=== PATIENT | male | born 1965 | race Caucasian/White ===

== ENCOUNTER → 2019-12-04 15:02 | Outpatient (BNVA) | payer OTHER, SELFPAY | PROVIDERS: PCP Internal Medicine; Visit Provider Surgery | DX: D17.1 Benign lipomatous neoplasm of skin and subcutaneous tissue of trunk (principal) | CPT/HCPCS: 99212 ==

== ENCOUNTER 2019-12-24 06:59 | Day surgery (SDC) | payer OTHER, SELFPAY ==
[2019-12-24] VITALS (8 sets, daily range): BP systolic 123–150; BP diastolic 61–85; PULSE 56–77; RESP 16; TEMP 36.1–37; O2SAT 95–97; BMI 31.5
[2019-12-24] MEDS: Lactated Ringers 1,000 ML 100 ML IVCONT (07:45)
--- NOTE | 2019-12-24 07:45 | P.CONAN_ITS ---
[facility] Past Medical History Medical History History of opioid abuse Hypogonadism Osteoarthritis Renal stones Family History Family history of problems with anesthesia: No Surgical History Surgical History H/O shoulder surgery History of Problems with Anesthesia: No Social History Social History Smoking Status: Never smoker Use of substances other than those prescribed or required for medical reasons: No Advance Directives: No Advance Directives Information Provided: Yes Meds Allergies Allergy/AdvReac Type Severity Reaction Status Date / Time codeine [CODEINE] Allergy Severe RASH Verified 12/24/19 07:11 Home Medications Medication Instructions Recorded Confirmed Type buprenorphine 12 mg-naloxone 3 mg 15 mg SUBLINGUAL DAILY 12/04/19 12/04/19 History sublingual film omeprazole 20 mg capsule,delayed mg PO 12/04/19 12/04/19 History release testosterone 20.25 mg/1.25 gram TRANSDERMAL 12/04/19 12/04/19 History (1.62 %) transdermal gel pump clonazepam 1 tab PO BID PRN 12/24/19 12/24/19 History Exam Exam Date and Time: December 24, 2019 0745 Height,Weight and Vital Signs: Height 5 ft 10 in Weight 99.79 kg Vital Signs Temp Pulse Resp BP Pulse Ox 12/24/19 08:02 98.6 F 56 16 142/85 H 95 Airway Mallampati Class: II TM Dist: >3cm Neck ROM: Full Heart: RRR Lungs: CTAB Assessment and Plan Assessment Anesthesia Assessment: Anesthesia Plan Discussed and Chart Reviewed Final Anesthetic Review NPO: Yes ASA Class: II Final Preanesthetic Review: No Changes in Pt Med Stat, Meds/Allgs Chart Reviewed, Consent Obtained/Reviewed and Anes Risks/Benef Reviewed Patient Risk: Intermediate Procedure Risk: Low Anesthetic Plan Anesthetic Plan: GA Disposition: Standard PACU
[2019-12-24] MEDS: ceFAZolin Sodium/Dextrose,Iso 2 GM/50 ML PIGGYBACK IV (08:05)
[2019-12-24] MEDS: ondansetron HCL 4 MG/2 ML VIAL IVPUSH (08:08)
--- NOTE | 2019-12-24 08:44 | MHC.SHP ---
Pre-Procedural Eval Section A The patient is an INPATIENT: No Changes since office visit: Yes Patient answered all questions; No Cold of Flu in the past 2 weeks, No New Medical Problems and No Changes in Medication The History & Physical has been completed within 30 days and I have reviewed it.: Yes Section B Chief Complaint: Lipoma of back Allergies: Allergies Allergy/AdvReac Type Severity Reaction Status Date / Time codeine [CODEINE] Allergy Severe RASH Verified 12/24/19 07:11 Plan Diagnosis/Plan: Unchanged Patient has been examined and remains a candidate for the planned procedure
--- NOTE | 2019-12-24 08:49 | PM.OP ---
Brief Operative Note Date of Service: 12/24/19 Pre-op diagnosis: Lipoma posterior left shoulder Post-op diagnosis: same Procedure: Excision lipoma posterior left shoulder Implants: none Surgeon: Griffin Radford MD Anesthesia: GLMA Estimated blood loss (mL): 5 Pathology: other (lipoma left shoulder) Condition: stable Disposition: PACU
--- NOTE | 2019-12-24 09:36 | P.OP_ITS ---
Operative Note Operative Note Date of Service: 12/24/19 Narrative: Preoperative diagnosis: Lipoma left back Postoperative diagnosis: Same Procedure: Excision of lipoma left back Surgeon: Griffin Radford MD Anesthesia: General LMA Indications for procedure: This is a 54-year-old male presenting with a soft tissue mass of the left upper back which is causing increased discomfort increasing in size. Patient has requested excision. Examination the patient has a 5 cm soft tissue mass suggestive of a lipoma. No overlying skin changes are identified. Operative findings patient was found have a 5 cm soft tissue mass suggestive of a lipoma. Specimen: Lipoma left back Complications: none Estimated blood loss: 5 mL Procedure details patient was brought to the OR placed in supine position. After administering general anesthesia he was placed in a right lateral decubit us position. A surgical time-out was called the consent confirmed. Patient received preoperative antibiotics and Venodyne boots were placed. The skin over the lipoma was prepped with ChloraPrep and draped in a sterile fashion. Local was infiltrated around the lipoma and the left back. Take oblique incision was then made over the lipoma and carried out through subcutaneous tissue up to the lipoma. Electrocautery was then used to dissect the lipoma off the surrounding tissue. The lipoma extended down to the muscular fascia. Hemostasis was assured using electrocautery. Lesion was excised and sent to pathology for further examination. Wounds were then irrigated with saline solution and suctioned dry. Wounds were again checked for hemostasis. Subcutaneous tissue was reapproximated using interrupted 3 0 Polysorb sutures. Skin was closed using a running subcuticular 4-0 Polysorb suture. Steri-Strips 4 x 4 gauze and Tegaderm were then applied. Patient tolerated procedure well. Sponge, instrument, needle counts reported as correct. The patient was transferred to PACU in stable condition.
--- NOTE | 2019-12-24 11:19 | HO.POSTANES ---
Post Anesthesia Evaluation Post Anesthesia Evaluation Vital Signs: Vital Signs Temp Pulse Resp BP Pulse Ox 12/24/19 10:44 76 16 96 12/24/19 10:15 97 F 74 16 135/67 97 12/24/19 10:00 67 16 134/75 95 12/24/19 09:45 71 16 134/75 95 12/24/19 09:40 74 16 150/64 H 96 12/24/19 09:35 77 16 146/61 H 97 12/24/19 09:30 98.2 F 75 16 123/67 97 12/24/19 08:02 98.6 F 56 16 142/85 H 95 Anesthesia: General Mental Status: Awake Pain Control: Satisfactory Nausea/Vomiting: None Hydration: Adequate Anesthesia-Related Issues: No Anes. Related Issues
== END 2019-12-24 11:15 | disposition home or self-care (01) ==
LOC: HO.SSS 07:00
PROVIDERS: PCP Internal Medicine; Visit Provider Surgery
PROC: (CPT 21933; principal; 2019-12-24 08:30)
DX: D17.79 Benign lipomatous neoplasm of other sites (principal); Z88.8 Allergy status to other drugs, medicaments and biological substances; Z79.899 Other long term (current) drug therapy
CPT/HCPCS: 21933; 88304; J0131; J0690; J1100; J1885; J2250; J2405; J3010

== ENCOUNTER 2019-12-24 11:23 | Outpatient (REF) | payer OTHER, SELFPAY ==
[2019-12-24 14:41] LABS: Alanine Aminotransferase 20 U/L (0-40); Aspartate Amino Transferase 17 U/L (5-37); Gamma Glutamyl Transpeptidase 69 U/L (11-51)
[2019-12-25 08:52] LABS: Lyme Abs Screen <0.90 index
== END 2019-12-24 11:24 | disposition home or self-care (01) ==
LOC: HO.10HDL 11:23
PROVIDERS: Absent Provider Internal Medicine; PCP Internal Medicine; Visit Provider Nurse Practitioner
DX: T14.8XXA Other injury of unspecified body region, initial encounter (principal); F11.20 Opioid dependence, uncomplicated
CPT/HCPCS: 82977; 84450; 84460; 86618

== ENCOUNTER 2019-12-27 07:42 | Emergency (ER) | payer OTHER, SELFPAY ==
--- NOTE | 2019-12-27 | XR_ITS ---
EXAMINATION: XR ANKLE, RIGHT CLINICAL INFORMATION: Right ankle pain. Rolled ankle. COMPARISON: None TECHNIQUE: AP, lateral, and mortise views of the right ankle. FINDINGS: There is no fracture or dislocation. The ankle mortise is congruent. Mild osteophyte formation along the mortise consistent with degenerative change. There is mild circumferential soft tissue swelling with small joint effusion. Plantar heel spur noted. XR/XR ankle RT min 3V IMPRESSION: Soft tissue swelling with small ankle joint effusion. No acute fracture or malalignment. Degenerative changes of the ankle. Plantar heel spur.
[2019-12-27 09:07] VITALS: BP 108/65; PULSE 81; RESP 16; TEMP 37.1; O2SAT 96; BMI 69.5
--- NOTE | 2019-12-27 09:11 | XR_ITS ---
EXAMINATION: XR FOOT, RIGHT CLINICAL INFORMATION: Twisting injury with right foot and ankle pain. COMPARISON: Right ankle radiographs performed earlier today at 8:05 AM. TECHNIQUE: AP, lateral, and oblique views of the right foot. FINDINGS: No fractures identified. There is no dislocation. Small inferior calcaneal spur noted. No suspicious osseous lesions. Mild soft tissue swelling about the ankle is redemonstrated. XR/XR foot RT min 3V IMPRESSION: No evidence of acute fracture or dislocation.
--- NOTE | 2019-12-27 09:20 | ED_ITS ---
HPI - Extremity Injury (Lower) General Chief Complaint: Extremity Injury, Lower Stated Complaint: RT ANKLE INJ Time Seen by Provider: 12/27/19 09:11 Source: patient Mode of arrival: wheelchair Limitations: no limitations History of Present Illness HPI Narrative: 54-year-old male presenting to the ED with complaints of right ankle /foot pain after twist injury while jogging. Denies head injury or loss of consciousness. Denies any other injuries complaints or concerns at this time. Patient reports it is worse with walking. Relieved by nothing. Related Data Home Medications Medication Instructions Recorded Confirmed buprenorphine 12 mg-naloxone 3 mg 15 mg SUBLINGUAL DAILY 12/04/19 12/04/19 sublingual film omeprazole 20 mg capsule,delayed mg PO 12/04/19 12/04/19 release testosterone 20.25 mg/1.25 gram TRANSDERMAL 12/04/19 12/04/19 (1.62 %) transdermal gel pump clonazepam 1 tab PO BID PRN 12/24/19 12/24/19 Previous Rx's Medication Instructions Recorded testosterone 20.25 mg/1.25 gram 2 pump TOPICAL DAILY 28 Days #75 g 12/06/19 (1.62 %) transdermal gel pump ibuprofen 800 mg PO Q8H PRN #14 tab 12/27/19 tramadol 50 mg PO Q8H PRN #14 tab 12/27/19 Allergies Allergy/AdvReac Type Severity Reaction Status Date / Time codeine [CODEINE] Allergy Severe RASH Verified 12/24/19 07:11 Review of Systems Review of Systems: Constitutional : No changes in activity, No lethargy, No recent prior head injury, No blood thinners. ENT/Mouth : No Ear Pain, No Nasal discharge/drainage Eyes: No Eye Pain, No Swelling, No Redness, No Foreign Body, No Vision Changes Cardiovascular : No Chest Pain, No SOB Respiratory : No Cough Gastrointestinal : No Nausea, No Vomiting, No abdominal Pain Genitourinary : No Dysuria, No Urinary Frequency, No Urinary Incontinence, No Urgency, No Flank Pain Musculoskeletal : + joint pain, No neck stiffness, No back pain/injury Skin : No lacerations Neuro : No unsteady gait, No Paresthesias, No Loss of Consciousness, No altered mental status, No Headache Yes all other systems are reviewed and are negative PMFSH Past Medical History Attestation statement: The following information was validated with the patient. Medical History History of opioid abuse Hypogonadism Osteoarthritis Renal stones Surgical History H/O shoulder surgery Social History Social History Smoking Status: Never smoker Advance Directives: Yes Advance Directives on File: Yes Advance Directives Date on File: 12/24/19 Physical Exam Vital Signs: Vital Signs: Last Vital Signs Temp 98.7 F 12/27/19 09:07 Pulse 81 12/27/19 09:07 Resp 16 12/27/19 09:07 BP 108/65 12/27/19 09:07 Pulse Ox 96 12/27/19 09:07 Body Mass Index 69.5 vital signs have been reviewed as normal and appeared to be correct. Blood pressure normal. Heart rate normal. Respiration rate normal. Temperature normal. Oxygen saturation normal. Appearance: Alert. Oriented X3. No acute distress. Head: Normal external exam. Normocephalic. Atraumatic. No Contreras signs noted. No raccoon eyes noted Eyes: PERRLA. EOMI. Conjunctiva and sclera normal. Eyelids normal. ENT: Pharynx normal. Uvula midline. Moist mucous membranes. Neck: Normal inspection. Neck supple. FROM. No adenopathy. Thyroid Normal. No meningeal signs. No neck mass noted. CVS: Normal heart rate and rhythm. Heart sound normal. No murmurs noted. Pulses normal throughout. Respiratory: No respiratory distress. Painless inspiration. Back: Full range of motion noted. Skin: Skin warm and dry. Normal skin color. Normal skin turgor. No rashes/lesions/lacerations noted. Extremities: to right ankle Lateral malleolus there is moderate soft tissue swelling with contusion noted and tenderness to palpation. No obvious deformities. Patient has limited range of motion for inversion and eversion due to pain. Patient has full strength for plantar flexion dorsiflexion. Achilles tendon intact. No lower extremity edema. all other Extremities exhibit normal range of motion and nontender. Neuro: Oriented X 3. No motor deficit. No sensory deficit. Reflexes normal. Course Course Course Narrative: Patient status post twist injury with pain to right ankle at the lateral malleolus with soft tissue swelling along with the foot and contusion noted. Patient has limited range of motion due to pain. Will obtain x-rays if negative will place in Raul wrap and provide crutches along with symptomatic treatment instructions to follow up with Orthopedics within 7-14 days. Patient understands agrees with this plan. MDM - Extremity Injury (Lower) Medical Records Attestation: I reviewed the patient's medical records. Imaging Data right ankle: Attestation: I personally reviewed and interpreted this imaging study as follows: Radiologist's impression: FINDINGS: There is no fracture or dislocation. The ankle mortise is congruent. Mild osteophyte formation along the mortise consistent with degenerative change. There is mild circumferential soft tissue swelling with small joint effusion. Plantar heel spur noted. XR/XR ankle RT min 3V IMPRESSION: Soft tissue swelling with small ankle joint effusion. No acute fracture or malalignment. Degenerative changes of the ankle. Plantar heel spur. right foot: Attestation: I personally reviewed and interpreted this imaging study as follows: Discharge Plan Discharge Clinical Impression: Ankle sprain and strain Patient Disposition: Home, Self-Care Instructions: Ankle Sprain (ED), Crutch Instructions (ED) Prescriptions: New ibuprofen 800 mg tablet 800 mg PO Q8H PRN (Reason: pain) Qty: 14 RF: 0 tramadol 50 mg tablet 50 mg PO Q8H PRN (Reason: pain) Qty: 14 RF: 0 No Action testosterone [AndroGel] 20.25 mg/1.25 gram (1.62 %) gel in metered-dose pump 2 pump topical DAILY 28 Days Qty: 75 RF: 5 clonazepam 1 mg tablet 1 tab PO BID PRN (Reason: Anxiety) RF: 0 omeprazole 20 mg capsule,delayed release(DR/EC) PO RF: 0 testosterone 20.25 mg/1.25 gram (1.62 %) gel in metered-dose pump transdermal RF: 0 buprenorphine-naloxone 12-3 mg film 15 mg sublingual DAILY RF: 0 Referrals: Eligio Calhoun MD [Physician] - 2 weeks Stand Alone Forms: Work/School Release Print Language: Colombian
[2019-12-27] MEDS: traMADoL HCL 50 MG TABLET PO (09:33)
[2019-12-27] MEDS: NaPROXEN 500 MG TABLET PO (09:33)
== END 2019-12-27 10:15 | disposition home or self-care (01) ==
PROVIDERS: Emergency Provider Emergency Medicine; PCP Internal Medicine
DX: S93.401A Sprain of unspecified ligament of right ankle, initial encounter (principal); M25.571 Pain in right ankle and joints of right foot; X50.1XXA Overexertion from prolonged static or awkward postures, initial encounter; Y93.02 Activity, running; Y92.410 Unspecified street and highway as the place of occurrence of the external cause; Y99.9 Unspecified external cause status
CPT/HCPCS: 73610; 73630; 99283

== ENCOUNTER → 2020-01-02 10:20 | Outpatient (BNVA) | payer OTHER, SELFPAY | PROVIDERS: PCP Internal Medicine; Visit Provider Surgery | DX: D17.1 Benign lipomatous neoplasm of skin and subcutaneous tissue of trunk (principal) | CPT/HCPCS: 99212 ==

== ENCOUNTER → 2020-01-11 10:25 | Outpatient (BNVA) | payer OTHER, SELFPAY | PROVIDERS: Visit Provider Physician Assistant | DX: S93.401A Sprain of unspecified ligament of right ankle, initial encounter (principal) | CPT/HCPCS: 99202 ==

== ENCOUNTER 2020-02-18 11:28 | Outpatient (REF) | payer OTHER, SELFPAY ==
[2020-02-18 13:52] LABS: MANUAL DIFF FLAG NO
[2020-02-18 13:55] LABS: Basophils Percent Auto 0.4 % (0-2); Eosinophils Absolute Auto 0.2 X10*3/uL (0.0-0.4); Eosinophils Percent Auto 1.4 % (0-4); Hematocrit 42.5 % (42-52); Hemoglobin 13.7 g/dl (14.0-18.0); Imm Gran Abs Auto 0.03 X10*3/uL (0.00-0.03); Imm Gran Pct Auto 0.3 % (0.0-0.4); Lymphocytes Absolute Auto 1.5 X10*3/uL (1.2-4.9); Lymphocytes Percent Auto 14.2 % (20-40); Mean Corpuscular HGB Conc 32.2 g/dl (31.0-36.0); Mean Corpuscular Hemoglobin 28.1 pg (27.0-33.0); Mean Corpuscular Volume 87.3 fL (80-98); Mean Platelet Volume 9.8 fL (9.4-12.4); Monocytes Absolute Auto 0.8 X10*3/uL (0.1-1.2); Monocytes Percent Auto 7.1 % (2-11); Neutrophils Absolute Auto 8.1 X10*3/uL (2.0-8.3); Neutrophils Percent Auto 76.6 % (45-73); Platelet Count 208 X10*3/uL (160-400); Red Blood Count 4.87 X10*6/uL (4.60-5.80); Red Cell Distribution Width 13.3 % (11.0-16.0); White Blood Count 10.6 X10*3/uL (4.8-10.8)
[2020-02-18 14:26] LABS: Alanine Aminotransferase 21 U/L (0-40); Albumin Level 4.1 g/dL (3.5-5.0); Alkaline Phosphatase 70 U/L (39-117); Anion Gap 11 (12-20); Aspartate Amino Transferase 20 U/L (5-37); Bilirubin Total 0.4 mg/dL (0.0-1.0); Blood Urea Nitrogen 16 mg/dL (9-16); Calcium 8.5 mg/dL (8.4-10.2); Carbon Dioxide 29 mmol/L (22-29); Chloride 103 mmol/L (96-108); Cholesterol 207 mg/dL; Estimated Glomerular Filt Rate > 60; Glucose Fasting 93 mg/dL (60-99); HDL Cholesterol 41 mg/dL; LDL Cholesterol Calculated 133 mg/dl; Potassium 4.3 mmol/l (3.3-5.1); Sodium 139 mmol/L (135-145); Total Protein 6.8 g/dL (6.5-8.0); Triglycerides 165 mg/dL
[2020-02-18 14:50] LABS: Free T4 (Free Thyroxine) 0.82 ng/dL (0.71-1.85); Thyroid Stimulating Hormone 1.97 uIU/mL (0.32-4.0)
[2020-02-18 15:00] LABS: Vitamin B12 497 pg/mL (200-900)
== END 2020-02-18 11:29 | disposition home or self-care (01) ==
LOC: HO.10HDL 11:28
PROVIDERS: PCP Internal Medicine; Visit Provider Internal Medicine
DX: R53.83 Other fatigue (principal); N20.0 Calculus of kidney; K21.9 Gastro-esophageal reflux disease without esophagitis; E78.00 Pure hypercholesterolemia, unspecified
CPT/HCPCS: 36415; 80053; 80061; 82607; 84439; 84443; 85025

== ENCOUNTER 2020-05-29 14:43 | Outpatient (REF) | payer OTHER, SELFPAY ==
[2020-05-29 15:59] LABS: Amphetamine Screen Urine Not Detected (Not Detect); Barbiturates, Urine Not Detected (Not Detect); Benzodiazepines Screen Urine POSITIVE (Not Detect); Cannabinoid Screen Urine Not Detected (Not Detect); Cocaine Screen Urine Not Detected (Not Detect); Opiate Screen Urine Not Detected (Not Detect); Phencyclidine Screen Urine Not Detected (Not Detect)
== END 2020-05-29 14:44 | disposition home or self-care (01) ==
LOC: HO.LAB 14:43
PROVIDERS: PCP Internal Medicine; Visit Provider Internal Medicine
DX: F11.99 Opioid use, unspecified with unspecified opioid-induced disorder (principal)
CPT/HCPCS: 80307

== ENCOUNTER 2020-09-05 08:20 | Outpatient (REF) | payer OTHER, SELFPAY | END 2020-09-05 08:21 | disposition home or self-care (01) | LOC: HO.LAB 08:20 | PROVIDERS: PCP Internal Medicine; Visit Provider Internal Medicine | DX: Z20.822 Contact with and (suspected) exposure to COVID-19 (principal) | CPT/HCPCS: C9803; U0003; U0005 ==

== ENCOUNTER 2020-11-24 08:46 | Emergency (ER) | payer OTHER, SELFPAY ==
[2020-11-24 09:11] VITALS: BP 110/77; PULSE 90; RESP 16; TEMP 36.8; O2SAT 96; BMI 30.1
[2020-11-24] MEDS: Lidocaine HCl 2 % MPF 5 ML VIAL SUBCUT (10:21)
--- NOTE | 2020-11-24 10:27 | ED.WOUNDLAC ---
HPI - Wound/Laceration General Chief Complaint: Wound/Laceration Stated Complaint: lip laceration Time Seen by Provider: 11/24/20 10:16 Source: patient Mode of arrival: ambulatory Limitations: no limitations History of Present Illness HPI narrative: 55-year-old male here with upper lip laceration after wrestling last evening. Patient tells me he was wrestling with a friend when he fell forward hitting his face on a cabinet in the kitchen. This happened at around 02:00. Last tetanus 1 year ago. No head injury or loss of consciousness. Related Data Home Medications Medication Instructions Recorded Confirmed buprenorphine 12 mg-naloxone 3 mg 15 mg SUBLINGUAL DAILY 12/04/19 01/02/20 sublingual film omeprazole 20 mg capsule,delayed mg PO 12/04/19 01/02/20 release testosterone 20.25 mg/1.25 gram TRANSDERMAL 12/04/19 01/02/20 (1.62 %) transdermal gel pump clonazepam 1 mg tablet 1 tab PO BID PRN 12/24/19 01/02/20 Previous Rx's Medication Instructions Recorded testosterone 20.25 mg/1.25 gram 2 pump TOPICAL DAILY 28 Days #75 g 12/06/19 (1.62 %) transdermal gel pump (AndroGel) ibuprofen 800 mg tablet 800 mg PO Q8H PRN #14 tab 12/27/19 tramadol 50 mg tablet 50 mg PO Q8H PRN #14 tab 12/27/19 leg brace (Ankle Brace) #1 ea 01/16/20 leg brace (Ankle Brace) #1 ea 01/16/20 Allergies Allergy/AdvReac Type Severity Reaction Status Date / Time codeine [CODEINE] Allergy Severe RASH Verified 01/11/20 10:33 Review of Systems Review of Systems: Yes all other systems are reviewed and are negative Constitutional: Constitutional: Reports no additional constitutional complaints, Denies body ache(s), Denies chills, Denies fever(s), Denies headache(s) and Denies weakness Eyes: Eyes: Reports no additional eye complaints and Denies change in vision ENT: Reports system reviewed and no additional complaints, except as documented, Denies dizziness, Denies headache(s), Reports lip swelling, Denies nasal congestion, Denies nasal discharge and Denies neck pain Comments: lip laceration Cardiovascular: Cardiovascular: Reports no additional cardiovascular complaints, Denies chest pain, Denies leg edema and Denies dyspnea Respiratory: Respiratory: Reports no additional respiratory complaints, Denies cough and Denies dyspnea Gastrointestinal: Gastrointestinal: Reports no additional gastrointestinal complaints, Denies abdominal pain, Denies diarrhea, Denies nausea and Denies vomiting Genitourinary: Genitourinary: Denies urinary incontinence Musculoskeletal: Musculoskeletal: Reports no additional musculoskeletal complaints, Denies back pain, Denies arthralgias, Denies joint swelling, Denies neck pain, Denies numbness and Denies tingling Integumentary/Breasts: Skin/Breast: Reports system reviewed and no additional complaints, except as docu and Denies rash Neurologic: Reports system reviewed and no additional complaints, except as documented, Denies Abnormal speech present, Denies dizziness, Denies headache(s), Denies numbness, Denies tingling and Denies weakness Allergic/Immunologic: Allergic/Immunologic: Reports lip swelling PMFSH Past Medical History Attestation statement: The following information was validated with the patient. Source: old records reviewed and nursing notes reviewed Medical History History of opioid abuse Hypogonadism Osteoarthritis Renal stones Surgical History H/O shoulder surgery History of excision of mass (~12/24/19) Social History Social History Advance Directives Date on File: 12/24/19 Physical Exam Vital Signs: Vital Signs: Last Vital Signs Temp 98.2 F 11/24/20 09:11 Pulse 90 11/24/20 09:11 Resp 16 11/24/20 09:11 BP 110/77 11/24/20 09:11 Pulse Ox 96 11/24/20 09:11 Body Mass Index 30.1 Const: General: cooperative, healthy appearing, comfortable and no acute distress Orientation/consciousness: patient oriented x3 Limitations: no limitations HENMT: Head: Yes normal to inspection Ears: hearing grossly normal bilaterally General nose exam: Normal external nose present Face and sinus: Yes normal facial exam Mouth: Normal oral and palatal mucosa present Mouth/tongue images: 1. Two centimetre laceration through the vermilion border. Just inferior to this there is an abrasion with edges that are approximated 2. Abrasion bleeding controlled Throat: Yes posterior oropharynx normal Eyes: General: appearance normal, both eyes and all related structures Pupils: Equal, round and reactive pupils present Neck: Neck: Yes normal visual inspection Chest: Chest palpation & inspection: normal inspection of the chest Resp: Effort & Inspection: normal respiratory effort Auscultation: clear to auscultation bilaterally Cardio: Rate: regular rate Rhythm: regular rhythm Peripheral pulses: Peripheral pulses 2+ throughout GI: Inspection: Yes normal to inspection Palpation (GI): Soft to palpation and nontender Auscultation: normal bowel sounds Back/Spine/Pelvis: Thoracic/Lumbar Spine: thoracic and lumbar spine normal to inspection Skin: General skin exam: no rashes or lesions noted Neuro: General: patient oriented x3, no focal motor deficits and normal sensation to monofilament Cranial nerves: Yes Equal, round and reactive pupils present Cognition (Neuro): normal cognition Speech: No Abnormal speech present Gait exam (Neuro): Normal gait present Motor exam (neuro): 5/5 motor strength present throughout Extrem: General: Yes normal to inspection Course Course Course Narrative: Lip laceration. See procedure note. Patient had some anxiety about procedure but we were able to discuss this at the bedside and with family support the procedure was successful. Reviewed worrisome signs and symptoms and when to return to the emergency department. Comfortable discharge home. MDM - Wound/Laceration Differential Diagnosis Differential diagnosis: Likely laceration Medical Records Attestation: I reviewed the patient's medical records. Lab Data Attestation: I reviewed the patient's lab results. Procedures Laceration Laceration 1: Site: lip Side (If applicable): left Size (cm): 2 Description: linear Depth: simple, single layer Local Anesthetic: lidocaine 2% Amount of anesthesia used (mL): 3 Pre-repair: wound explored and irrigated extensively Skin layer closed with: other (Prolene) Size (cm): 6-0 Number of sutures: 3 Technique: simple, interrupted Discharge Plan Discharge Clinical Impression: Laceration Patient Disposition: Home, Self-Care Instructions: Facial Laceration (ED) Additional Instructions: sutures out in 5-7 days NO straws, sips of liquids. Soft foods only Hydrogen peroxide gargles Prescriptions: No Action testosterone [AndroGel] 20.25 mg/1.25 gram (1.62 %) gel in metered-dose pump 2 pump topical DAILY 28 Days Qty: 75 RF: 5 (DME) Ankle Brace Misc See Rx Instructions .MEDSUPPLY Qty: 1 RF: 0 (DME) Ankle Brace Misc See Rx Instructions .MEDSUPPLY Qty: 1 RF: 0 clonazepam 1 mg tablet 1 tab PO BID PRN (Reason: Anxiety) RF: 0 ibuprofen 800 mg tablet 800 mg PO Q8H PRN (Reason: pain) Qty: 14 RF: 0 tramadol 50 mg tablet 50 mg PO Q8H PRN (Reason: pain) Qty: 14 RF: 0 omeprazole 20 mg capsule,delayed release(DR/EC) PO RF: 0 testosterone 20.25 mg/1.25 gram (1.62 %) gel in metered-dose pump transdermal RF: 0 buprenorphine-naloxone 12-3 mg film 15 mg sublingual DAILY RF: 0 Referrals: Cj Moore MD [Primary Care Provider] - 2 days Interventions: ED Discharge Assessment Last Done: 11/24/20 10:31
== END 2020-11-24 10:40 | disposition home or self-care (01) ==
LOC: HO.ED 10:35
PROVIDERS: Emergency Provider Student in an Organized Health Care Education/Training Program; PCP Internal Medicine
DX: S01.511A Laceration without foreign body of lip, initial encounter (principal); Y33.XXXA Other specified events, undetermined intent, initial encounter; Y93.9 Activity, unspecified; Y92.9 Unspecified place or not applicable; Y99.9 Unspecified external cause status; Z79.899 Other long term (current) drug therapy
CPT/HCPCS: 12011; 99283; 99284

== ENCOUNTER 2021-02-24 12:09 | Outpatient (REF) | payer OTHER, SELFPAY ==
[2021-03-01 09:56] LABS: Testosterone, Free 29.2 pg/mL (35.0-155.0); Testosterone, Total 177 ng/dL (250-1100)
== END 2021-02-24 12:10 | disposition home or self-care (01) ==
LOC: HO.LAB 12:09
PROVIDERS: PCP Internal Medicine; Visit Provider Urology
DX: E29.1 Testicular hypofunction (principal)
CPT/HCPCS: 36415; 84402; 84403

== ENCOUNTER 2021-02-26 12:32 | Outpatient (REF) | payer OTHER, SELFPAY ==
[2021-02-26 13:46] LABS: Alanine Aminotransferase 35 U/L (0-40); Aspartate Amino Transferase 30 U/L (5-37); Gamma Glutamyl Transpeptidase 97 U/L (11-51)
== END 2021-02-26 12:33 | disposition home or self-care (01) ==
LOC: HO.LAB 12:32
PROVIDERS: PCP Internal Medicine; Visit Provider Registered Nurse
DX: F11.20 Opioid dependence, uncomplicated (principal)
CPT/HCPCS: 36415; 82977; 84450; 84460

== ENCOUNTER 2021-04-11 18:50 | Emergency (ER) | payer OTHER, SELFPAY ==
--- NOTE | 2021-04-11 18:59 | ECG_ITS ---
Test Reason : OVERDOSE Blood Pressure : / mmHG Vent. Rate : 148 BPM Atrial Rate : 000 BPM P-R Int : 000 ms QRS Dur : 090 ms QT Int : 312 ms P-R-T Axes : 000 -21 023 degrees QTc Int : 489 ms Atrial fibrillation with rapid ventricular response Nonspecific ST abnormality Abnormal ECG No previous ECGs available Referred By: Elver August Electronically Signed By:Jaime Kaur
[2021-04-11 19:00] VITALS: BP 173/119; PULSE 140; RESP 10; TEMP 36.5; O2SAT 100; BMI 31.5
[2021-04-11] MEDS: 0.9 % Sodium Chloride 1,000 ML 999 ML IV (19:08)
[2021-04-11 19:10] LABS: MANUAL DIFF FLAG NO
[2021-04-11 19:15] VITALS: BP 144/90; PULSE 156
[2021-04-11 19:16] LABS: Basophils Absolute Auto 0.1 X10*3/uL (0.0-0.2); Basophils Percent Auto 0.7 % (0-2); Eosinophils Absolute Auto 0.1 X10*3/uL (0.0-0.4); Eosinophils Percent Auto 1.3 % (0-4); Hematocrit 45.7 % (42.0-52.0); Hemoglobin 14.8 g/dl (14.0-18.0); Imm Gran Abs Auto 0.02 X10*3/uL (0.00-0.03); Imm Gran Pct Auto 0.2 % (0.0-0.4); Lymphocytes Absolute Auto 2.3 X10*3/uL (1.2-4.9); Lymphocytes Percent Auto 24.6 % (20-40); Mean Corpuscular HGB Conc 32.4 g/dl (31.0-36.0); Mean Corpuscular Hemoglobin 27.7 pg (27.0-33.0); Mean Corpuscular Volume 85.4 fL (80.0-98.0); Mean Platelet Volume 9.1 fL (9.4-12.4); Monocytes Absolute Auto 0.9 X10*3/uL (0.1-1.2); Monocytes Percent Auto 10.2 % (2-11); Neutrophils Absolute Auto 5.8 x10*3/uL (2.0-8.3); Platelet Count 339 X10*3/uL (160-400); Red Blood Count 5.35 X10*6/uL (4.60-5.80); Red Cell Distribution Width 13.6 % (11.0-16.0); White Blood Count 9.2 X10*3/uL (4.8-10.8)
[2021-04-11 19:24] LABS: Ethanol < 10 mg/dL
[2021-04-11 19:29] LABS: Alanine Aminotransferase 41 U/L (0-40); Albumin Level 4.8 g/dL (3.5-5.0); Alkaline Phosphatase 80 U/L (39-117); Anion Gap 14 (12-20); Aspartate Amino Transferase 41 U/L (5-37); Bilirubin Total 0.5 mg/dL (0.0-1.0); Blood Urea Nitrogen 21 mg/dL (9-16); Calcium 9.8 mg/dL (8.4-10.2); Carbon Dioxide 24 mmol/L (22-29); Chloride 104 mmol/L (96-108); Creatinine Clr Calc Pharmacy 92.5; Estimated Glomerular Filt Rate > 60; Glucose Random 176 mg/dL (60-115); Lipase 6 U/L (8-78); Potassium 4.3 mmol/L (3.3-5.1); Sodium 138 mmol/L (135-145); Total Protein 8.4 g/dL (6.5-8.0)
[2021-04-11 19:39] LABS: Lactic Acid 1.8 mmol/L (0.5-2.0)
[2021-04-11 19:45] VITALS: BP 98/70; PULSE 155
--- NOTE | 2021-04-11 19:51 | PC.NURSE ---
Pt resting on stretcher, alert and oriented HR 140s-160s BP 98/70 MD aware Plan: observation for change in mentation x 2-4 hours
--- NOTE | 2021-04-11 20:16 | HO.SUDE ---
Pt presented after an opioid overdose and was narcaned several times. Pt was not interested in engaging and reports that he doesn't want any resources at this time.
--- NOTE | 2021-04-11 20:19 | MHC.RECOVSUP ---
? Reason for consult:Recovery Support o ? ? ?Current location: ED-22 o ? ? ?Identified substance use concern: Heroine - Overdose - Support ? ?Intervention: o Community resources provided o Harm reduction discussion ? Additional information:?I was able to connect with patient and review harm reduction strategies and options for community outreach. Patient was in discomfort and wanted to rest. Community resources was left with the patient.
[2021-04-11 20:53] VITALS: PULSE 141; O2SAT 95
[2021-04-11 21:10] LABS: Amphetamine Screen Urine Not Detected (Not Detect); Barbiturates, Urine Not Detected (Not Detect); Benzodiazepines Screen Urine Not Detected (Not Detect); Cannabinoid Screen Urine Not Detected (Not Detect); Cocaine Screen Urine POSITIVE (Not Detect); Fentanyl, urine POSITIVE (Not Detect); Opiate Screen Urine POSITIVE (Not Detect); Phencyclidine Screen Urine Not Detected (Not Detect)
--- NOTE | 2021-04-11 21:54 | ED.OVERDOSE ---
HPI - Overdose General Chief Complaint: Overdose Stated Complaint: OD Time Seen by Provider: 04/11/21 18:58 Source: patient Mode of arrival: ambulatory Limitations: altered mental status History of Present Illness HPI Narrative: 56-year-old male who is brought to emergency department by his son for possible overdose. The patient was initially not able to give a history but after he was revived with Narcan was able to answer questions. He states that he does have a history opiate use disorder. He is currently taking Suboxone once a day. States that he used 2 bags of powder intranasally which he thought was heroin. He does not remember what happened after that. Apparently was unresponsive in his son drove him to the emergency department. The patient was taken out of his car placed on a stretcher and wheeled into the emergency department. The patient had minimal respiratory effort and in ED nurse was assisting his respirations with a bag-valve mask. He was given 4 doses of intranasal Narcan and did wake up. Initially he was confused and combative after being revived. He states that he was not ill in any way prior to using the intranasal drugs. He has no complaints at this time. He denies headache, nausea, vomiting, chest pain, shortness of breath, palpitations, abdominal pain, numbness, weakness. Related Data Home Medications Medication Instructions Recorded Confirmed buprenorphine 12 mg-naloxone 3 mg 15 mg SUBLINGUAL DAILY 12/04/19 01/02/20 sublingual film omeprazole 20 mg capsule,delayed mg PO 12/04/19 01/02/20 release clonazepam 1 mg tablet 1 tab PO BID PRN 12/24/19 01/02/20 Previous Rx's Medication Instructions Recorded testosterone 20.25 mg/1.25 gram 2 pump TOPICAL DAILY 28 Days #75 g 12/06/19 (1.62 %) transdermal gel pump (AndroGel) ibuprofen 800 mg tablet 800 mg PO Q8H PRN #14 tab 12/27/19 tramadol 50 mg tablet 50 mg PO Q8H PRN #14 tab 12/27/19 leg brace (Ankle Brace) #1 ea 01/16/20 leg brace (Ankle Brace) #1 ea 01/16/20 Allergies Allergy/AdvReac Type Severity Reaction Status Date / Time codeine [CODEINE] Allergy Severe RASH Verified 01/11/20 10:33 Review of Systems Review of Systems: Yes all other systems are reviewed and are negative [facility] Past Medical History [facility] Narrative: Past medical history: GERD, anxiety, opiate use disorder. Social history: Patient denies tobacco use. He denies alcohol use. He states that has a history opiate use disorder. He is taking Suboxone Medical History History of opioid abuse Hypogonadism Hypogonadism in male Osteoarthritis Renal stones Surgical History H/O shoulder surgery History of excision of mass (~12/24/19) Social History Social History Advance Directives: No Advance Directives Date on File: 12/24/19 Physical Exam Vital Signs: Vital Signs: Last Vital Signs Temp 97.7 F 04/11/21 19:00 Pulse 141 H 04/11/21 20:53 Resp 10 L 04/11/21 19:00 BP 98/70 04/11/21 19:45 Pulse Ox 95 04/11/21 20:53 BMI result Body Mass Index 31.5 Const: Other: Patient is unresponsive, diaphoretic, apneic, breathing use pain assisted by [id number] by the ED nurse. HENMT: Head: Yes normal to inspection, Yes normocephalic and Yes atraumatic Ears: external ears normal General nose exam: Normal external nose present Face and sinus: Yes normal facial exam Mouth: Normal oral and palatal mucosa present Throat: Yes posterior oropharynx normal Eyes: General: appearance normal, both eyes and all related structures Pupils: Pinpoint pupils Neck: Neck: Yes normal visual inspection, Yes no lymphadenopathy, Yes trachea midline and Yes supple Chest: Chest palpation & inspection: normal inspection of the chest and normal palpation of entire chest wall Resp: Other: Minimal respiratory effort, being assisted with bag-valve mask, breath sounds are symmetric bilaterally with no wheezing, rales or rhonchi Cardio: Rate: tachycardic Rhythm: regular rhythm Heart sounds: S1 normal heart sound present, S2 normal heart sound present and no murmurs GI: Inspection: Yes normal to inspection Palpation (GI): Soft to palpation, nontender and no guarding Auscultation: normal bowel sounds : General: Yes no CVA tenderness Back/Spine/Pelvis: Back: no CVA tenderness Skin: General skin exam: no rashes or lesions noted Neuro: Other: Patient is unresponsive, not responding to painful stimuli Extrem: General: Yes normal to inspection Psych: Other: Patient is unresponsive. Course Course Course Narrative: 56-year-old male with history of opiate use disorder on Suboxone who presents emergency department for evaluation of unresponsiveness after using 2 bags of intranasal drugs which he thought was heroin. Patient was transported to the emergency department by his son in extricated from his car brought into emergency department immediately. The patient was not breathing and his respirations were assisted with a bag-valve mask. He was given 4 doses of intranasal Narcan and did eventually respond. The patient was monitored in the emergency department for least 4 hours and during this time remained awake and alert. He was tachycardic and he was treated with normal saline x1 L. The patient's laboratory evaluation was unremarkable. Urine tox screen was positive for opiates, fentanyl and cocaine. I did discuss this with the patient. The patient states that he is going to continue taking Suboxone clinic was discharged home with intranasal Narcan. MDM - Overdose Lab Data Result diagrams: 04/11/21 19:06 04/11/21 19:06 Labs: Lab Results 04/11/21 04/11/21 04/11/21 Range/Units 19:06 19:06 19:06 WBC 9.2 (4.8-10.8) X10*3/uL RBC 5.35 (4.60-5.80) X10*6/uL Hgb 14.8 (14.0-18.0) g/dl Hct 45.7 (42.0-52.0) % MCV 85.4 (80.0-98.0) fL MCH 27.7 (27.0-33.0) pg MCHC 32.4 (31.0-36.0) g/dl RDW 13.6 (11.0-16.0) % Plt Count 339 (160-400) X10*3/uL MPV 9.1 L (9.4-12.4) fL Immature Gran % (Auto) 0.2 (0.0-0.4) % Neut % (Auto) 63.0 (45-73) % Lymph % (Auto) 24.6 (20-40) % Greenlee % (Auto) 10.2 (2-11) % Eos % (Auto) 1.3 (0-4) % Baso % (Auto) 0.7 (0-2) % Lymph # (Auto) 2.3 (1.2-4.9) X10*3/uL Greenlee # (Auto) 0.9 (0.1-1.2) X10*3/uL Eos # (Auto) 0.1 (0.0-0.4) X10*3/uL Baso # (Auto) 0.1 (0.0-0.2) X10*3/uL Abs Immat Gran (auto) 0.02 (0.00-0.03) X10*3/uL Absolute Neuts (auto) 5.8 (2.0-8.3) x10*3/uL Absolute Nucleated RBC 0.000 (0.0-0.012) X10*3/uL Nucleated RBC % (auto) 0.0 (0.0-0.2) /100WBC Sodium 138 (135-145) mmol/L Potassium 4.3 (3.3-5.1) mmol/L Chloride 104 (96-108) mmol/L Carbon Dioxide 24 (22-29) mmol/L Anion Gap 14 (12-20) BUN 21 H (9-16) mg/dL Creatinine 1.08 (0.5-1.4) mg/dL Estim Creat Clear Calc 92.5 Estimated GFR > 60 Random Glucose 176 H (60-115) mg/dL Lactic Acid (0.5-2.0) mmol/L Calcium 9.8 D (8.4-10.2) mg/dL Total Bilirubin 0.5 (0.0-1.0) mg/dL AST 41 H (5-37) U/L ALT 41 H (0-40) U/L Alkaline Phosphatase 80 (39-117) U/L Total Protein 8.4 H D (6.5-8.0) g/dL Albumin 4.8 (3.5-5.0) g/dL Lipase 6 L (8-78) U/L Urine Opiates Screen (Not Detect) Urine Fentanyl Screen (Not Detect) Ur Barbiturates Screen (Not Detect) Ur Phencyclidine Scrn (Not Detect) Ur Amphetamines Screen (Not Detect) U Benzodiazepines Scrn (Not Detect) Urine Cocaine Screen (Not Detect) U Marijuana (THC) Screen (Not Detect) Ethyl Alcohol < 10 mg/dL 04/11/21 04/11/21 Range/Units 19:11 20:45 WBC (4.8-10.8) X10*3/uL RBC (4.60-5.80) X10*6/uL Hgb (14.0-18.0) g/dl Hct (42.0-52.0) % MCV (80.0-98.0) fL MCH (27.0-33.0) pg MCHC (31.0-36.0) g/dl RDW (11.0-16.0) % Plt Count (160-400) X10*3/uL MPV (9.4-12.4) fL Immature Gran % (Auto) (0.0-0.4) % Neut % (Auto) (45-73) % Lymph % (Auto) (20-40) % Greenlee % (Auto) (2-11) % Eos % (Auto) (0-4) % Baso % (Auto) (0-2) % Lymph # (Auto) (1.2-4.9) X10*3/uL Greenlee # (Auto) (0.1-1.2) X10*3/uL Eos # (Auto) (0.0-0.4) X10*3/uL Baso # (Auto) (0.0-0.2) X10*3/uL Abs Immat Gran (auto) (0.00-0.03) X10*3/uL Absolute Neuts (auto) (2.0-8.3) x10*3/uL Absolute Nucleated RBC (0.0-0.012) X10*3/uL Nucleated RBC % (auto) (0.0-0.2) /100WBC Sodium (135-145) mmol/L Potassium (3.3-5.1) mmol/L Chloride (96-108) mmol/L Carbon Dioxide (22-29) mmol/L Anion Gap (12-20) BUN (9-16) mg/dL Creatinine (0.5-1.4) mg/dL Estim Creat Clear Calc Estimated GFR Random Glucose (60-115) mg/dL Lactic Acid 1.8 (0.5-2.0) mmol/L Calcium (8.4-10.2) mg/dL Total Bilirubin (0.0-1.0) mg/dL AST (5-37) U/L ALT (0-40) U/L Alkaline Phosphatase (39-117) U/L Total Protein (6.5-8.0) g/dL Albumin (3.5-5.0) g/dL Lipase (8-78) U/L Urine Opiates Screen POSITIVE H (Not Detect) Urine Fentanyl Screen POSITIVE H (Not Detect) Ur Barbiturates Screen Not Detected (Not Detect) Ur Phencyclidine Scrn Not Detected (Not Detect) Ur Amphetamines Screen Not Detected (Not Detect) U Benzodiazepines Scrn Not Detected (Not Detect) Urine Cocaine Screen POSITIVE H (Not Detect) U Marijuana (THC) Screen Not Detected (Not Detect) Ethyl Alcohol mg/dL Critical Care Time Critical Care Time Critical Care Time: Yes Total Critical Care Time: 30 Attestation: Critical Care: The patient was critically ill with a high probability of imminent or life threatening deterioration. I spent greater than 30 minutes of discontinuous time evaluating the patient,delivering critical care at the bedside, discussing and evaluating pertinent data with consultants. Critical care time does not include time spent performing separately billable procedures or teaching. Total time spent performing critical care was 30 minutes. Discharge Plan Discharge Clinical Impression: Overdose Qualifiers: Encounter type: initial encounter Injury intent: accidental or unintentional Qualified Code(s): T50.901A - Poisoning by unspecified drugs, medicaments and biological substances, accidental (unintentional), initial encounter Patient Disposition: Home, Self-Care Instructions: Adult Overdose (ED) Additional Instructions: The drugs that used today was not heroin and caused due to overdose. Your drug screen was positive for fentanyl and for cocaine. Your are being discharged home with intranasal Narcan. If you are going to continue to use heroin, you should make sure that there is a sober person with you that is not using drugs and that this person can administer intranasal Narcan in the event that you stop breathing. You can go home and take your Suboxone this evening. Follow-up with your doctor in 2 days. Please return to the emergency department if your symptoms get worse or if you develop any symptoms that are concerning to you. Prescriptions: No Action testosterone [AndroGel] 20.25 mg/1.25 gram (1.62 %) gel in metered-dose pump 2 pump topical DAILY 28 Days Qty: 75 5RF Rx Instructions: apply 1 pump amount over max area of EACH upper arm and shoulder (DME) Ankle Brace Misc See Rx Instructions .MEDSUPPLY Qty: 1 0RF Rx Instructions: airselect, short (DME) Ankle Brace Misc See Rx Instructions .MEDSUPPLY Qty: 1 0RF Rx Instructions: large stabilizing pro ankle blk l clonazepam 1 mg tablet 1 tab PO BID PRN (Reason: Anxiety) 0RF ibuprofen 800 mg tablet 800 mg PO Q8H PRN (Reason: pain) Qty: 14 0RF tramadol 50 mg tablet 50 mg PO Q8H PRN (Reason: pain) Qty: 14 0RF omeprazole 20 mg capsule,delayed release(DR/EC) PO 0RF buprenorphine-naloxone 12-3 mg film 15 mg sublingual DAILY 0RF
[2021-04-11] MEDS: Naloxone HCl Nasal TAKE HOME 4 MG SPRAY NOSTRILALT (22:28)
== END 2021-04-11 22:31 | disposition home or self-care (01) ==
PROVIDERS: Emergency Provider Emergency Medicine Emergency Medical Services
DX: T40.5X1A Poisoning by cocaine, accidental (unintentional), initial encounter (principal); T40.411A Poisoning by fentanyl or fentanyl analogs, accidental (unintentional), initial encounter; R40.4 Transient alteration of awareness; R00.0 Tachycardia, unspecified; Y92.9 Unspecified place or not applicable; F11.20 Opioid dependence, uncomplicated
CPT/HCPCS: 36415; 80053; 80307; 82077; 83605; 83690; 85025; 93005; 96360; 99283; 99285

== ENCOUNTER → 2021-05-12 12:15 | Outpatient (BNVA) | payer OTHER, SELFPAY | PROVIDERS: PCP Internal Medicine; Visit Provider Urology | DX: E29.1 Testicular hypofunction (principal); N20.0 Calculus of kidney; E34.9 Endocrine disorder, unspecified | CPT/HCPCS: Q3014 ==

== ENCOUNTER → 2021-05-14 13:31 | Outpatient (BNVA) | payer OTHER, SELFPAY | PROVIDERS: PCP Internal Medicine; Visit Provider Urology | DX: E29.1 Testicular hypofunction (principal); Z88.6 Allergy status to analgesic agent | CPT/HCPCS: 96372 ==

== ENCOUNTER → 2021-06-02 10:51 | Outpatient (BNVA) | payer OTHER, SELFPAY | PROVIDERS: PCP Internal Medicine; Visit Provider Urology | DX: E29.1 Testicular hypofunction (principal) | CPT/HCPCS: 96372; 99211 ==

== ENCOUNTER 2021-06-23 11:55 | Outpatient (REF) | payer OTHER, SELFPAY ==
[2021-06-23 14:05] LABS: Alanine Aminotransferase 21 U/L (0-40); Aspartate Amino Transferase 22 U/L (5-37)
[2021-06-23 14:20] LABS: Gamma Glutamyl Transpeptidase 24 U/L (11-51)
[2021-06-27 15:16] LABS: Testosterone, Total 108 ng/dL (250-1100)
== END 2021-06-23 11:56 | disposition home or self-care (01) ==
LOC: HO.LAB 11:55
PROVIDERS: Absent Provider Family Medicine; PCP Internal Medicine; Visit Provider Urology
DX: E29.1 Testicular hypofunction (principal); F11.20 Opioid dependence, uncomplicated
CPT/HCPCS: 36415; 82977; 84403; 84450; 84460; 96372

== ENCOUNTER 2021-06-29 06:59 | Outpatient (REF) | payer OTHER, SELFPAY ==
--- NOTE | ~2021-06-29 | XR_ITS ---
EXAMINATION: KNEE X-RAY CLINICAL INFORMATION: Pain COMPARISON: Previous x-ray March 2019 TECHNIQUE: Standing AP view of both knees and lateral and sunrise view of the left knee FINDINGS: Left: Bone alignment is normal. No fracture or dislocation is seen. Joint spaces are normal. There is no joint effusion. Standing AP view of the right knee demonstrates mild medial femoral tibial joint space narrowing. XR/XR knee standing BI IMPRESSION: Normal left knee. Mild right medial femoral tibial joint space narrowing.
--- NOTE | ~2021-06-29 | XR_ITS ---
EXAMINATION: KNEE X-RAY CLINICAL INFORMATION: Pain COMPARISON: Previous x-ray March 2019 TECHNIQUE: Standing AP view of both knees and lateral and sunrise view of the left knee FINDINGS: Left: Bone alignment is normal. No fracture or dislocation is seen. Joint spaces are normal. There is no joint effusion. Standing AP view of the right knee demonstrates mild medial femoral tibial joint space narrowing. XR/XR knee LT 2V IMPRESSION: Normal left knee. Mild right medial femoral tibial joint space narrowing.
== END 2021-06-29 07:00 | disposition home or self-care (01) ==
LOC: HO.HOSX 06:59
PROVIDERS: Visit Provider Orthopaedic Surgery
DX: M25.562 Pain in left knee (principal); M25.561 Pain in right knee
CPT/HCPCS: 73560; 73565; 99212

== ENCOUNTER 2021-07-02 08:53 | Outpatient (REF) | payer OTHER, SELFPAY ==
[2021-07-02 09:48] LABS: Influenza A PCR NEGATIVE (Negative); Influenza B PCR NEGATIVE (Negative); Resp Syncy Virus RNA Qual PCR NEGATIVE (Negative); SARS COV2 PCR INHOUSE NEGATIVE (Negative)
== END 2021-07-02 08:54 | disposition home or self-care (01) ==
LOC: HO.LNP 08:53
PROVIDERS: PCP Internal Medicine; Visit Provider Internal Medicine
DX: J00 Acute nasopharyngitis [common cold] (principal); R51.9 Headache, unspecified; R05.9 Cough, unspecified; Z20.822 Contact with and (suspected) exposure to COVID-19
CPT/HCPCS: 0241U

== ENCOUNTER → 2021-07-07 13:03 | Outpatient (BNVA) | payer OTHER, SELFPAY | PROVIDERS: PCP Internal Medicine; Visit Provider Urology | DX: E29.1 Testicular hypofunction (principal) | CPT/HCPCS: 96372 ==

== ENCOUNTER 2021-07-08 14:28 | Outpatient (REF) | payer OTHER, SELFPAY ==
--- NOTE | ~2021-07-08 | XR_ITS ---
EXAMINATION: XR CHEST CLINICAL INFORMATION: Cough COMPARISON: Chest radiographs 10/09/2019, 01/15/2013 TECHNIQUE: 2 views of the chest were obtained. FINDINGS: The lungs are clear. No airspace consolidation or groundglass opacity or effusion. Heart size normal. Vascularity normal. The hilar and mediastinal contours and bony structures are unremarkable. XR/XR chest 2V IMPRESSION: Lungs clear.
== END 2021-07-08 14:29 | disposition home or self-care (01) ==
LOC: HO.XRAY 14:28
PROVIDERS: PCP Internal Medicine; Visit Provider Internal Medicine
DX: R07.9 Chest pain, unspecified (principal); R05.9 Cough, unspecified
CPT/HCPCS: 71046

== ENCOUNTER → 2021-08-12 13:59 | Outpatient (BNVA) | payer OTHER, SELFPAY | PROVIDERS: PCP Internal Medicine; Visit Provider Urology | DX: E29.1 Testicular hypofunction (principal) | CPT/HCPCS: 96372 ==

== ENCOUNTER → 2021-08-27 13:41 | Outpatient (BNVA) | payer OTHER, SELFPAY | PROVIDERS: PCP Internal Medicine; Visit Provider Urology | DX: E29.1 Testicular hypofunction (principal) | CPT/HCPCS: 96372 ==

== ENCOUNTER → 2021-09-10 12:33 | Outpatient (BNVA) | payer OTHER, SELFPAY | PROVIDERS: PCP Internal Medicine; Visit Provider Urology | DX: E29.1 Testicular hypofunction (principal) | CPT/HCPCS: 96372 ==

== ENCOUNTER → 2021-09-24 14:28 | Outpatient (BNVA) | payer OTHER, SELFPAY | PROVIDERS: PCP Internal Medicine; Visit Provider Urology | DX: E29.1 Testicular hypofunction (principal) | CPT/HCPCS: 96372 ==

== ENCOUNTER → 2021-10-08 13:08 | Outpatient (BNVA) | payer OTHER, SELFPAY | PROVIDERS: PCP Internal Medicine; Visit Provider Urology | DX: E29.1 Testicular hypofunction (principal) | CPT/HCPCS: 96372 ==

== ENCOUNTER 2021-10-29 10:25 | Outpatient (REF) | payer OTHER, SELFPAY ==
[2021-11-03 08:42] LABS: Testosterone, Total 218 ng/dL (250-1100)
== END 2021-10-29 10:26 | disposition home or self-care (01) ==
LOC: HO.LAB 10:25
PROVIDERS: PCP Internal Medicine; Visit Provider Urology
DX: E29.1 Testicular hypofunction (principal)
CPT/HCPCS: 36415; 84403

== ENCOUNTER → 2021-11-03 13:02 | Outpatient (BNVA) | payer OTHER, SELFPAY | PROVIDERS: PCP Internal Medicine; Visit Provider Urology | DX: E29.1 Testicular hypofunction (principal) | CPT/HCPCS: 96372 ==

== ENCOUNTER → 2021-11-17 12:52 | Outpatient (BNVA) | payer OTHER, SELFPAY | PROVIDERS: PCP Internal Medicine; Visit Provider Urology | DX: E29.1 Testicular hypofunction (principal) | CPT/HCPCS: 96372 ==

== ENCOUNTER → 2021-12-09 10:55 | Outpatient (BNVA) | payer OTHER, SELFPAY | PROVIDERS: PCP Internal Medicine; Visit Provider Urology | DX: E29.1 Testicular hypofunction (principal) | CPT/HCPCS: 96372 ==

== ENCOUNTER → 2021-12-25 10:33 | Outpatient (BNVA) | payer OTHER, SELFPAY | PROVIDERS: PCP Internal Medicine; Visit Provider Urology | DX: E29.1 Testicular hypofunction (principal) | CPT/HCPCS: 96372 ==

== ENCOUNTER 2022-01-05 10:34 | Outpatient (REF) | payer OTHER, SELFPAY ==
[2022-01-05 14:53] LABS: Prostate Specific Antigen 0.37 ng/mL (<0.05-4.0)
[2022-01-09 22:14] LABS: Estradiol Ultra Sensitive 27 pg/mL (< OR = 29)
[2022-01-12 12:19] LABS: Testosterone, Total 585 ng/dL (250-1100)
== END 2022-01-05 10:35 | disposition home or self-care (01) ==
LOC: HO.LAB 10:34
PROVIDERS: PCP Internal Medicine; Visit Provider Urology
DX: E29.1 Testicular hypofunction (principal)
CPT/HCPCS: 36415; 82670; 84153; 84403

== ENCOUNTER 2022-01-06 10:12 | Outpatient (REF) | payer OTHER, SELFPAY ==
[2022-01-06 11:06] LABS: Alanine Aminotransferase 19 U/L (0-40); Aspartate Amino Transferase 23 U/L (5-37); Gamma Glutamyl Transpeptidase 31 U/L (11-51)
== END 2022-01-06 10:13 | disposition home or self-care (01) ==
LOC: HO.LAB 10:12
PROVIDERS: Visit Provider Registered Nurse
DX: F11.20 Opioid dependence, uncomplicated (principal)
CPT/HCPCS: 36415; 82977; 84450; 84460

== ENCOUNTER → 2022-01-25 13:56 | Outpatient (BNVA) | payer OTHER, SELFPAY | PROVIDERS: PCP Internal Medicine; Visit Provider Urology | DX: E29.1 Testicular hypofunction (principal) | CPT/HCPCS: 96372 ==

== ENCOUNTER → 2022-02-09 13:51 | Outpatient (BNVA) | payer OTHER, SELFPAY | PROVIDERS: PCP Internal Medicine; Visit Provider Urology | DX: E29.1 Testicular hypofunction (principal) | CPT/HCPCS: 96372 ==

== ENCOUNTER → 2022-02-25 11:17 | Outpatient (BNVA) | payer OTHER, SELFPAY | PROVIDERS: PCP Internal Medicine; Visit Provider Urology | DX: E29.1 Testicular hypofunction (principal) | CPT/HCPCS: 96372 ==

== ENCOUNTER → 2022-03-22 10:50 | Outpatient (BNVA) | payer OTHER, SELFPAY | PROVIDERS: PCP Internal Medicine; Visit Provider Urology | DX: E29.1 Testicular hypofunction (principal) | CPT/HCPCS: 96372 ==

== ENCOUNTER → 2022-04-12 09:16 | Outpatient (BNVA) | payer OTHER, SELFPAY | PROVIDERS: PCP Internal Medicine; Visit Provider Urology | DX: E29.1 Testicular hypofunction (principal) | CPT/HCPCS: 96372 ==

== ENCOUNTER → 2022-05-03 10:02 | Outpatient (BNVA) | payer OTHER, SELFPAY | PROVIDERS: PCP Internal Medicine; Visit Provider Urology | DX: E29.1 Testicular hypofunction (principal) | CPT/HCPCS: 96372 ==

== ENCOUNTER → 2022-05-17 09:59 | Outpatient (BNVA) | payer OTHER, SELFPAY | PROVIDERS: PCP Internal Medicine; Visit Provider Urology ==

== ENCOUNTER → 2022-06-08 12:52 | Outpatient (BNVA) | payer OTHER, SELFPAY | PROVIDERS: PCP Internal Medicine; Visit Provider Urology | DX: E29.1 Testicular hypofunction (principal) | CPT/HCPCS: 96372 ==

== ENCOUNTER → 2022-06-23 10:10 | Outpatient (BNVA) | payer OTHER, SELFPAY | PROVIDERS: PCP Internal Medicine; Visit Provider Urology | DX: E29.1 Testicular hypofunction (principal) | CPT/HCPCS: 96372 ==

== ENCOUNTER 2022-07-08 09:36 | Outpatient (REF) | payer OTHER, SELFPAY ==
--- NOTE | ~2022-07-08 | US_ITS ---
EXAMINATION: US RETROPERITONEAL LIMITED (RENAL ONLY) CLINICAL INFORMATION: Calculus of kidney. COMPARISON: CT abdomen and pelvis 06/12/2019. Ultrasound abdomen complete 06/05/2019. TECHNIQUE: Real-time imaging of the kidneys. FINDINGS: RIGHT KIDNEY: 12.3 x 6.3 x 6.8 cm (SAG x AP x TRV). The kidney is normal in size, contour, and echogenicity. Renal cortical thickness is normal. No renal calculi or hydronephrosis. There is a 3.9 x 3.5 x 3.2 cm cyst in the lower pole with a few thin internal septations, previously this measured 3.6 x 2.5 x 3 cm on ultrasound from 06/05/2019. On the current examination there is some questionable internal flow on a single image (image 16 of 43, series 1), that could represent an artifact. When compared to a CT from 06/12/2019 the cyst is fairly simple and homogeneous measuring simple fluid in attenuation. There is an additional 0.9 x 0.8 x 1 cm simple cyst in the lower pole with no concerning features. LEFT KIDNEY: 11.5 x 5.6 x 5.0 cm (SAG x AP x TRV). The kidney is normal in size, contour, and echogenicity. Renal cortical thickness is normal. No focal parenchymal lesions or hydronephrosis. There are 2 nonobstructive renal calculi in the mid and upper pole measuring up to 0.7 cm. US/US renal BI IMPRESSION: 1. There is a 3.9 cm cyst in the lower pole of the right kidney with a few thin internal septations. There is some questionable internal flow on a single image which could represent an artifact, as this appears fairly simple on prior CT from 2019. This cyst is slightly increased in size compared to ultrasound from 06/12/2019. A follow-up ultrasound in 3-6 months is recommended for reevaluation, alternatively definite characterization could be obtained with an MRI of the abdomen renal mass protocol. 2. There are 2 nonobstructive left-sided renal calculi measuring up to 0.7 cm.
== END 2022-07-08 09:37 | disposition home or self-care (01) ==
LOC: HO.US 09:36
PROVIDERS: PCP Internal Medicine; Visit Provider Urology
DX: N20.0 Calculus of kidney (principal)
CPT/HCPCS: 76775

== ENCOUNTER 2022-07-13 12:01 | Outpatient (REF) | payer OTHER, SELFPAY ==
[2022-07-13 12:34] LABS: Hematocrit 39.9 % (42.0-52.0); Hemoglobin 12.7 g/dl (14.0-18.0); Mean Corpuscular HGB Conc 31.8 g/dl (31.0-36.0); Mean Corpuscular Hemoglobin 27.1 pg (27.0-33.0); Mean Corpuscular Volume 85.3 fL (80.0-98.0); Mean Platelet Volume 9.5 fL (9.4-12.4); Platelet Count 256 X10*3/uL (160-400); Red Blood Count 4.68 X10*6/uL (4.60-5.80); Red Cell Distribution Width 15.8 % (11.0-16.0); White Blood Count 4.5 X10*3/uL (4.8-10.8)
[2022-07-13 13:17] LABS: Prostate Specific Antigen 0.24 ng/mL (<0.05-4.0)
[2022-07-18 10:23] LABS: Testosterone, Total 251 ng/dL (250-1100)
== END 2022-07-13 12:02 | disposition home or self-care (01) ==
LOC: HO.LAB 12:01
PROVIDERS: PCP Internal Medicine; Visit Provider Urology
DX: E29.1 Testicular hypofunction (principal); Z12.5 Encounter for screening for malignant neoplasm of prostate
CPT/HCPCS: 36415; 84153; 84403; 85027; 96372

== ENCOUNTER 2022-07-27 12:44 | Outpatient (AMB) | payer OTHER, SELFPAY ==
--- NOTE | 2022-07-27 12:59 | A.OFFVIS_ITS ---
Intake Intake Visit Reasons: 6 M LABS/US/T Injection(set) Intake Note: Patient presents today for a 6mo follow-up with Labs & Ultrasound Results. * Urology Medication: Testosterone * Blood Thinners: None * Allergies to antibiotics: None Allergies codeine [CODEINE] Allergy (Severe, Verified 01/20/22 13:02) RASH HPI HPI Comments History of Present Illness Details Cayetano is a pleasant male. He is a patient of Dr. Moore. He is seen for the following urologic conditions - hypogonadism - nephrolithiasis - lower urinary tract symptoms Lab work appropriate for injection every 2 weeks Would continue Six month follow-up lab work Lower urinary tract symptoms Primarily nocturia Current therapy includes tamsulosin Hypogonadism Did not respond to AndroGel Switch to injectable therapy - Current therapy 1.0 cc Q 2 week Injection day - Tuesday q2 week, lab Tuesday Labs - 02/28 T 177 H45, 06/28 100, 10/29 T 220, 12/29 T 585 P 0.37, 07/30 T 251 P 0.23 Nephrolithiasis Prior ureteroscopy for left-sided stones Imaging - 07/30 renal ultrasound left 6 mm stone PFSH Medical History History of opioid abuse Hypogonadism Hypogonadism in male Osteoarthritis Renal stones Surgical History H/O shoulder surgery History of excision of mass (~12/24/19) Social History Advance Directives Date on File: 12/24/19 Review of Systems Const Denies chills and Denies fever(s) Card Reports no additional complaints and Denies syncope Resp Denies cough GI Denies abdominal pain and Denies heartburn Reports as per HPI and Denies change in libido Neuro Denies syncope Psych Denies change in libido Endo Denies change in libido Physical Exam Const General: cooperative, healthy appearing, comfortable and no acute distress Orientation/consciousness: patient oriented x3 HEENT Face and sinus: Yes normal facial exam Mouth: moist mucous membranes Neck Neck: Yes normal visual inspection, Yes full ROM and Yes trachea midline Chest Chest palpation & inspection: normal inspection of the chest Resp Effort & Inspection: normal respiratory effort, able to speak in complete sentences and no respiratory distress GI Inspection: Yes normal to inspection Back/Spine/Pelvis Cervical Spine: normal cervical lordosis Thoracic/Lumbar Spine: thoracic and lumbar spine normal to inspection Skin General skin exam: no rashes or lesions noted Neuro General: patient oriented x3, gait normal, tone normal and moves all extremities Extrem General: Yes normal to inspection and Yes capillary refill normal Office Meds testosterone cypionate 200 mg/mL intramuscular kit Performing Provider: Colby Carolina MD [place] [facility] [facility] Administered by: Citlali Coon RN on 07/27/22 13:50 Dose Route Admin Location Dispensed Lot Number Expiration Date [facility] Cpa Tax 200 mg IM left deltoid 1 ea [id number] 01/07/25 5996-7477-90 Assessment & Plan Assessment & Plan (1) Hypogonadism in male: Code(s): E29.1 - Testicular hypofunction (2) Renal stones: Code(s): N20.0 - Calculus of kidney Plan Six month follow-up lab work Orders: Orders AMB Testosterone Injection Patient Supplied 07/27/22 E29.1 - Testicular hypofunction Prostate Specific Antigen 6 Months E29.1 - Testicular hypofunction Testosterone, Total 6 Months E29.1 - Testicular hypofunction Complete Blood Count no Diff 6 Months E29.1 - Testicular hypofunction Patient Instructions: Imaging studies, laboratory and physical exam results were discussed and reviewed in detail. No major barriers to patient understanding were identified. An opportunity to ask questions regarding the treatment plan was provided. All questions were answered. The patient expressed understanding and agreement with the above treatment plan. The patient is aware they should contact our office by phone for worsening of their current condition or the appearance of new urologic symptoms. Compliance is encouraged with any medications and followup testing that is ordered. It is a privilege to participate in the urologic care of your patient. If you have any questions or concerns regarding treatment for the above conditions, or other urologic issues, please do not hesitate to contact me. The office telephone contact is [phone]. This note is constructed using voice recognition software. While every effort has been made to ensure accuracy shipping and receiving supervisor errors may have been included. Yours sincerely, Dr Colby Carolina MD, [facility] - Urology Providers of Expert, Compassionate Care for the Genitourinary System Coding Level of Care Code Est Pt Level 3 (11794) Diagnoses Hypogonadism in male E29.1 Renal stones N20.0
== END 2022-07-27 13:55 | disposition home or self-care (01) ==
LOC: HO.HUSH 12:44
PROVIDERS: PCP Internal Medicine; Visit Provider Urology
DX: E29.1 Testicular hypofunction (principal); N20.0 Calculus of kidney
CPT/HCPCS: 99213

== ENCOUNTER → 2022-07-27 12:44 | Outpatient (BNVA) | payer OTHER, SELFPAY | PROVIDERS: PCP Internal Medicine; Visit Provider Urology | DX: E29.1 Testicular hypofunction (principal); N20.0 Calculus of kidney | CPT/HCPCS: 96372 ==

== ENCOUNTER → 2022-08-11 13:21 | Outpatient (BNVA) | payer OTHER, SELFPAY | PROVIDERS: PCP Internal Medicine; Visit Provider Urology | DX: E29.1 Testicular hypofunction (principal) | CPT/HCPCS: 96372 ==

== ENCOUNTER 2022-09-17 12:27 | Outpatient (REF) | payer OTHER, SELFPAY ==
[2022-09-17 14:53] LABS: Alanine Aminotransferase 20 U/L (0-40); Gamma Glutamyl Transpeptidase 47 U/L (11-51)
== END 2022-09-17 12:28 | disposition home or self-care (01) ==
LOC: HO.LAB 12:27
PROVIDERS: PCP Internal Medicine; Visit Provider Registered Nurse
DX: F11.20 Opioid dependence, uncomplicated (principal); E29.1 Testicular hypofunction
CPT/HCPCS: 36415; 82977; 84460; 96372

== ENCOUNTER 2022-09-17 12:49 | Outpatient (AMB) | payer OTHER, SELFPAY ==
--- NOTE | 2022-09-17 13:18 | AM.OFFVISNUR ---
Intake Intake Visit Reasons: 2 wk testo injection Allergies codeine [CODEINE] Allergy (Severe, Verified 01/20/22 13:02) RASH Office Meds testosterone cypionate Performing Provider: Colby Carolina MD Administered by: Citlali Coon RN on 09/17/22 13:18 Dose Route Admin Location Lot Number Expiration Date N[employer] Sr. Manager 200 mg IM right deltoid [id number] 04/07/25 6772-3674-69 Coding Diagnoses Assessment & Plan Assessment & Plan Orders: Orders AMB Testosterone Injection Patient Supplied Today E29.1 - Testicular hypofunction
== END 2022-09-17 13:29 | disposition home or self-care (01) ==
PROVIDERS: PCP Internal Medicine; Visit Provider Urology
DX: E29.1 Testicular hypofunction (principal)

== ENCOUNTER 2022-10-12 09:50 | Outpatient (AMB) | payer OTHER, SELFPAY ==
--- NOTE | 2022-10-12 09:58 | AM.OFFVISNUR ---
Intake Intake Visit Reasons: 2w testo injection Allergies codeine [CODEINE] Allergy (Severe, Verified 01/20/22 13:02) RASH Office Meds testosterone cypionate Performing Provider: Colby Carolina MD Administered by: Citlali Coon RN on 10/12/22 09:58 Dose Route Admin Location Lot Number Expiration Date NDC Chemistry Intern 200 mg IM left deltoid [id number] 04/07/25 7414-6070-38 Coding Diagnoses Assessment & Plan Assessment & Plan Orders: Orders AMB Testosterone Injection Patient Supplied Today E29.1 - Testicular hypofunction
== END 2022-10-12 10:11 | disposition home or self-care (01) ==
PROVIDERS: PCP Internal Medicine; Visit Provider Urology
DX: E29.1 Testicular hypofunction (principal)

== ENCOUNTER → 2022-10-12 09:50 | Outpatient (BNVA) | payer OTHER, SELFPAY | PROVIDERS: PCP Internal Medicine; Visit Provider Urology | DX: E29.1 Testicular hypofunction (principal) | CPT/HCPCS: 96372 ==

== ENCOUNTER 2022-11-04 13:43 | Outpatient (AMB) | payer OTHER, SELFPAY ==
--- NOTE | 2022-11-04 14:00 | AM.OFFVISNUR ---
Intake Intake Visit Reasons: 2 WK testo Injection Allergies codeine [CODEINE] Allergy (Severe, Verified 01/20/22 13:02) RASH Office Meds testosterone cypionate 200 mg/mL intramuscular kit Performing Provider: Colby Carolina MD Performing Location[facility] [place] [facility] Administered by: Garcia Gonzales LPN on 11/04/22 14:00 Dose Route Admin Location Dispensed Lot Number Expiration Date [facility] Shipping Clerk Crating 200 mg IM right deltoid 1 ea [id number] 04/07/25 4111-7588-94 Coding Assessment & Plan Assessment & Plan Orders: Orders AMB Testosterone Injection Patient Supplied Today E29.1 - Testicular hypofunction
== END 2022-11-04 14:12 | disposition home or self-care (01) ==
PROVIDERS: PCP Internal Medicine; Visit Provider Urology
DX: E29.1 Testicular hypofunction (principal)

== ENCOUNTER → 2022-11-04 13:43 | Outpatient (BNVA) | payer OTHER, SELFPAY | PROVIDERS: PCP Internal Medicine; Visit Provider Urology | DX: E29.1 Testicular hypofunction (principal) | CPT/HCPCS: 96372 ==

== ENCOUNTER 2022-11-19 12:37 | Outpatient (AMB) | payer OTHER, SELFPAY ==
--- NOTE | 2022-11-19 13:11 | AM.OFFVISNUR ---
Intake Intake Visit Reasons: 2 week testo inject Allergies codeine [CODEINE] Allergy (Severe, Verified 01/20/22 13:02) RASH Office Meds testosterone cypionate 200 mg/mL intramuscular kit Performing Provider: Colby Carolina MD Performing Location: [facility] [place] [facility] Administered by: Garcia Gonzales LPN on 11/19/22 13:11 Dose Route Admin Location Dispensed Lot Number Expiration Date [facility] Shipping Coordinator 200 mg IM left deltoid 1 ea [id number] 02/07/25 8167-5680-46 Coding Assessment & Plan Assessment & Plan Orders: Orders AMB Testosterone Injection Patient Supplied Today E29.1 - Testicular hypofunction
== END 2022-11-19 13:20 | disposition home or self-care (01) ==
PROVIDERS: PCP Internal Medicine; Visit Provider Urology
DX: E29.1 Testicular hypofunction (principal)

== ENCOUNTER → 2022-11-19 12:37 | Outpatient (BNVA) | payer OTHER, SELFPAY | PROVIDERS: PCP Internal Medicine; Visit Provider Urology | DX: E29.1 Testicular hypofunction (principal) | CPT/HCPCS: 96372 ==

== ENCOUNTER 2022-12-03 12:39 | Outpatient (AMB) | payer OTHER, SELFPAY ==
--- NOTE | 2022-12-03 13:16 | A.OFFVIS_ITS ---
Intake Intake Visit Reasons: 2w testo injection Allergies codeine [CODEINE] Allergy (Severe, Verified 01/20/22 13:02) RASH HPI HPI Comments History of Present Illness Details Cayetano is a pleasant male. He is a patient of Dr. Moore. He is seen for the following urologic conditions - hypogonadism - nephrolithiasis - lower urinary tract symptoms Transitioning from injection every 2 weeks to testosterone gel Had previously had some issues with this but we will try again Lower urinary tract symptoms Primarily nocturia Current therapy includes tamsulosin Hypogonadism Did not respond to AndroGel Switch to injectable therapy - Current therapy 1.0 cc Q 2 week Injection day - Tuesday q2 week, lab Tuesday Labs - 02/28 T 177 H45, 06/28 100, 10/29 T 220, 12/29 T 585 P 0.37, 07/30 T 251 P 0.23 Nephrolithiasis Prior ureteroscopy for left-sided stones Imaging - 07/30 renal ultrasound left 6 mm stone PFSH Medical History History of opioid abuse Hypogonadism Hypogonadism in male Osteoarthritis Renal stones Surgical History H/O shoulder surgery History of excision of mass (~12/24/19) Social History Advance Directives Date on File: 12/24/19 Review of Systems Const Denies chills and Denies fever(s) Card Reports no additional complaints and Denies syncope Resp Denies cough GI Denies abdominal pain and Denies heartburn Reports as per HPI and Denies change in libido Neuro Denies syncope Psych Denies change in libido Endo Denies change in libido Physical Exam Const General: cooperative, healthy appearing, comfortable and no acute distress Orientation/consciousness: patient oriented x3 HEENT Face and sinus: Yes normal facial exam Mouth: moist mucous membranes Neck Neck: Yes normal visual inspection, Yes full ROM and Yes trachea midline Chest Chest palpation & inspection: normal inspection of the chest Resp Effort & Inspection: normal respiratory effort, able to speak in complete sentences and no respiratory distress GI Inspection: Yes normal to inspection Back/Spine/Pelvis Cervical Spine: normal cervical lordosis Thoracic/Lumbar Spine: thoracic and lumbar spine normal to inspection Skin General skin exam: no rashes or lesions noted Neuro General: patient oriented x3, gait normal, tone normal and moves all extremities Extrem General: Yes normal to inspection and Yes capillary refill normal Office Meds testosterone cypionate 200 mg/mL intramuscular kit Performing Provider: Colby Carolina MD [facility] Administered by: Citlali Coon RN on 12/03/22 13:16 Dose Route Admin Location Dispensed Lot Number Expiration Date [facility] D[employer] Room Worker 200 mg IM right deltoid 1 ea [id number] 07/08/25 2155-8330-90 Assessment & Plan Assessment & Plan (1) Hypogonadism: (2) Hypogonadism in male: Code(s): E29.1 - Testicular hypofunction Plan Six-month follow-up Orders: Orders Prostate Specific Antigen 6 Months E29.1 - Testicular hypofunction Complete Blood Count no Diff 6 Months E29.1 - Testicular hypofunction AMB Testosterone Injection Patient Supplied Today E29.1 - Testicular hypofunction Testosterone, Total 6 Months E29.1 - Testicular hypofunction Medications: New testosterone apply 1 pump each arm after showering and rub until dry 2 pumps topical DAILY 30 days 75 grams 5RF E29.1 - Testicular hypofunction, R79.89 - Other specified abnormal findings of blood chemistry Patient Instructions: Imaging studies, laboratory and physical exam results were discussed and reviewed in detail. No major barriers to patient understanding were identified. An opportunity to ask questions regarding the treatment plan was provided. All questions were answered. The patient expressed understanding and agreement with the above treatment plan. The patient is aware they should contact our office by phone for worsening of their current condition or the appearance of new urologic symptoms. Compliance is encouraged with any medications and followup testing that is ordered. It is a privilege to participate in the urologic care of your patient. If you have any questions or concerns regarding treatment for the above conditions, or other urologic issues, please do not hesitate to contact me. The office telephone contact is [phone]. This note is constructed using voice recognition software. While every effort has been made to ensure accuracy sterile preparation technician errors may have been included. Yours sincerely, Dr Colby Carolina MD, [facility] Providers of Expert, Compassionate Care for the Genitourinary System Coding Level of Care Code Est Pt Level 4 (66673) Diagnoses Hypogonadism Hypogonadism in male E29.1
== END 2022-12-03 13:32 | disposition home or self-care (01) ==
PROVIDERS: PCP Internal Medicine; Visit Provider Urology
DX: E29.1 Testicular hypofunction (principal)
CPT/HCPCS: 99214

== ENCOUNTER → 2022-12-03 12:39 | Outpatient (BNVA) | payer OTHER, SELFPAY | PROVIDERS: PCP Internal Medicine; Visit Provider Urology | DX: E29.1 Testicular hypofunction (principal) | CPT/HCPCS: 96372 ==

== ENCOUNTER 2023-03-14 09:29 | Outpatient (REF) | payer OTHER, SELFPAY ==
[2023-03-14 09:49] LABS: MANUAL DIFF FLAG NO
[2023-03-14 10:17] LABS: Basophils Absolute Auto 0.1 X10*3/uL (0.0-0.2); Basophils Percent Auto 1.1 % (0-2); Eosinophils Absolute Auto 0.3 X10*3/uL (0.0-0.4); Hematocrit 45.9 % (42.0-52.0); Hemoglobin 14.6 g/dl (14.0-18.0); Imm Gran Abs Auto 0.02 X10*3/uL (0.00-0.03); Imm Gran Pct Auto 0.4 % (0.0-0.4); Lymphocytes Absolute Auto 1.4 X10*3/uL (1.2-4.9); Lymphocytes Percent Auto 25.6 % (20-40); Mean Corpuscular HGB Conc 31.8 g/dl (31.0-36.0); Mean Corpuscular Hemoglobin 26.9 pg (27.0-33.0); Mean Corpuscular Volume 84.7 fL (80.0-98.0); Mean Platelet Volume 9.2 fL (9.4-12.4); Monocytes Absolute Auto 0.5 X10*3/uL (0.1-1.2); Monocytes Percent Auto 8.4 % (2-11); Neutrophils Absolute Auto 3.1 x10*3/uL (2.0-8.3); Neutrophils Percent Auto 58.5 % (45-73); Platelet Count 242 X10*3/uL (160-400); Red Blood Count 5.42 X10*6/uL (4.60-5.80); Red Cell Distribution Width 14.7 % (11.0-16.0); White Blood Count 5.4 X10*3/uL (4.8-10.8)
[2023-03-14 10:41] LABS: Alanine Aminotransferase 22 U/L (0-40); Albumin Level 4.3 g/dL (3.5-5.0); Alkaline Phosphatase 64 U/L (39-117); Anion Gap 10 (12-20); Aspartate Amino Transferase 21 U/L (5-37); Bilirubin Total 0.2 mg/dL (0.0-1.0); Blood Urea Nitrogen 20 mg/dL (9-16); Calcium 9.1 mg/dL (8.4-10.2); Carbon Dioxide 31 mmol/L (22-29); Chloride 103 mmol/L (96-108); Cholesterol 266 mg/dL (<200); Estimated Glomerular Filt Rate > 60; Glucose Fasting 85 mg/dL (60-99); HDL Cholesterol 47 mg/dL (>40); LDL Cholesterol Calculated 191 mg/dL (<100); Potassium 4.4 mmol/L (3.3-5.1); Sodium 140 mmol/L (135-145); Total Protein 7.3 g/dL (6.5-8.0); Triglycerides 141 mg/dL (<150)
[2023-03-14 11:00] LABS: Prostate Specific Antigen Scr 0.26 ng/mL (<0.05-4.0)
[2023-03-18 15:28] LABS: Testosterone, Total 1196 ng/dL (250-1100)
== END 2023-03-14 09:30 | disposition home or self-care (01) ==
LOC: HO.LAB 09:29
PROVIDERS: Urology; PCP Internal Medicine; Visit Provider Internal Medicine
DX: Z12.5 Encounter for screening for malignant neoplasm of prostate (principal); E29.1 Testicular hypofunction; G47.00 Insomnia, unspecified; Z87.442 Personal history of urinary calculi
CPT/HCPCS: 36415; 80053; 80061; 84153; 84403; 85025

== ENCOUNTER 2023-09-08 14:33 | Outpatient (REF) | payer OTHER, SELFPAY ==
[2023-09-08 14:50] LABS: MANUAL DIFF FLAG NO
[2023-09-08 15:26] LABS: Basophils Percent Auto 0.6 % (0-2); Eosinophils Absolute Auto 0.2 X10*3/uL (0.0-0.4); Eosinophils Percent Auto 4.6 % (0-4); Hematocrit 39.7 % (42.0-52.0); Imm Gran Abs Auto 0.02 X10*3/uL (0.00-0.03); Imm Gran Pct Auto 0.4 % (0.0-0.4); Lymphocytes Absolute Auto 1.8 X10*3/uL (1.2-4.9); Lymphocytes Percent Auto 36.1 % (20-40); Mean Corpuscular HGB Conc 32.7 g/dl (31.0-36.0); Mean Corpuscular Hemoglobin 28.4 pg (27.0-33.0); Mean Corpuscular Volume 86.7 fL (80.0-98.0); Mean Platelet Volume 9.3 fL (9.4-12.4); Monocytes Absolute Auto 0.6 X10*3/uL (0.1-1.2); Monocytes Percent Auto 11.5 % (2-11); Neutrophils Absolute Auto 2.4 x10*3/uL (2.0-8.3); Neutrophils Percent Auto 46.8 % (45-73); Platelet Count 243 X10*3/uL (160-400); Red Blood Count 4.58 X10*6/uL (4.60-5.80); Red Cell Distribution Width 13.7 % (11.0-16.0)
[2023-09-08 15:48] LABS: Estimated Average Glucose 114 mg/dL; Hemoglobin A1c % 5.6 % (<6.0)
[2023-09-08 15:49] LABS: Alanine Aminotransferase 25 U/L (0-40); Albumin Level 4.3 g/dL (3.5-5.0); Alkaline Phosphatase 85 U/L (39-117); Anion Gap 10 (12-20); Aspartate Amino Transferase 21 U/L (5-37); Bilirubin Total 0.3 mg/dL (0.0-1.0); Blood Urea Nitrogen 27 mg/dL (9-16); Calcium 9.2 mg/dL (8.4-10.2); Carbon Dioxide 31 mmol/L (22-29); Chloride 106 mmol/L (96-108); Cholesterol 216 mg/dL (<200); Estimated Glomerular Filt Rate > 60; Glucose Random 94 mg/dL (60-115); HDL Cholesterol 46 mg/dL (>40); LDL Cholesterol Calculated 141 mg/dL (<100); Potassium 4.3 mmol/L (3.3-5.1); Sodium 143 mmol/L (135-145); Triglycerides 148 mg/dL (<150)
== END 2023-09-08 14:34 | disposition home or self-care (01) ==
LOC: HO.LAB 14:33
PROVIDERS: PCP Internal Medicine; Visit Provider Internal Medicine
DX: I10 Essential (primary) hypertension (principal); R73.03 Prediabetes; R51.9 Headache, unspecified; Z87.442 Personal history of urinary calculi
CPT/HCPCS: 36415; 80053; 80061; 82550; 83036; 85025; 86140

== ENCOUNTER 2023-09-26 15:39 | Outpatient (REF) | payer OTHER, SELFPAY ==
--- NOTE | ~2023-09-26 | XR_ITS ---
EXAMINATION: XR SHOULDER, RIGHT CLINICAL INFORMATION: Pain and limited range of motion. COMPARISON: None available. TECHNIQUE: AP external rotation, Grashey, scapular Y, and axillary views of the right shoulder. FINDINGS: No acute fracture or dislocation. Moderate acromioclavicular joint space narrowing with marginal osteophytes. Mild glenohumeral joint space narrowing with tiny marginal osteophytes. Lobulated calcification adjacent to the greater tuberosity measuring up to 1.0 cm and consistent distal supraspinatus calcific tendinitis. No concerning lytic or blastic osseous lesion. XR/XR shoulder RT min 2V IMPRESSION: 1. Distal supraspinatus calcific tendinitis. 2. Moderate acromioclavicular and mild glenohumeral osteoarthritis. Electronically signed by: Med Alvarez MD 09/27/2023 11:10 AM EDT
[2023-09-26 16:45] LABS: Hematocrit 43.3 % (42.0-52.0); Hemoglobin 13.8 g/dl (14.0-18.0); Mean Corpuscular HGB Conc 31.9 g/dl (31.0-36.0); Mean Corpuscular Hemoglobin 27.6 pg (27.0-33.0); Mean Corpuscular Volume 86.6 fL (80.0-98.0); Mean Platelet Volume 9.3 fL (9.4-12.4); Platelet Count 280 X10*3/uL (160-400); White Blood Count 5.3 X10*3/uL (4.8-10.8)
[2023-09-26 17:23] LABS: Prostate Specific Antigen 0.38 ng/mL (<0.05-4.0)
[2023-10-01 14:18] LABS: Testosterone, Total 87 ng/dL (250-1100)
== END 2023-09-26 15:40 | disposition home or self-care (01) ==
LOC: HO.XRAY 15:39
PROVIDERS: Absent Provider Internal Medicine; PCP Internal Medicine; Visit Provider Urology
DX: Z12.5 Encounter for screening for malignant neoplasm of prostate (principal); E29.1 Testicular hypofunction; M25.511 Pain in right shoulder
CPT/HCPCS: 36415; 73030; 84153; 84403; 85027

== ENCOUNTER 2023-09-30 09:34 | Outpatient (AMB) | payer OTHER, SELFPAY ==
[2023-09-30 09:36] VITALS: BMI 31.3
--- NOTE | 2023-09-30 09:36 | A.OFFVIS_ITS ---
Vital Signs 09/30/23 09:36 Height 5 ft 10 in Weight 218 lb BMI 31.3 Intake Visit Reasons: New Prob - Right Shoulder Pain Intake Note: Kade is a 58 year old right hand dominant male who presents today for a new problem visit with complaints of right shoulder pain. Patient reports that he has had worsening right shoulder pain for about 6 months to a year now. He expla ins that he is having pain an weakness all the time worsening with activity. He explains that his arm feels after use. Allergies codeine [CODEINE] Allergy (Severe, Verified 09/30/23 09:39) RASH HPI HPI New Prob - Right Shoulder Pain: Details: Kade is a 58 year old right hand dominant male who presents today for a new problem visit with complaints of right shoulder pain. Patient reports that he has had worsening right shoulder pain for about 6 months to a year now. He explains that he is having pain an weakness all the time worsening with activity. He explains that his arm feels after use. [facility] Medical History Hypogonadism in male Renal stones Osteoarthritis Hypogonadism History of opioid abuse Surgical History History of excision of mass (~12/24/19) H/O shoulder surgery Social History (Reviewed 09/30/23 @ 09:43 by Megan Celaya [facility]) Advance Directives Date on File: 12/24/19 Physical Exam Vital Signs: BMI result Body Mass Index 31.3 Office Procedures Joint Injection/Aspiration Joint Injection/Aspiration Details: Injected 1 mL of Decadron and 3 mL 1% lidocaine and 3 mL of 0.25% Marcaine. Site was prepped using aseptic technique. Patient tolerated the procedure well. Primary Site: right shoulder (proximal bicipital groove) Coding 73293 - Glenohumeral/Tronchanteric Bursa/Intraarticular Procedure code (CPT) selection complete Assessment & Plan Assessment & Plan (1) Biceps tendonitis: Code(s): M75.20 - Bicipital tendinitis, unspecified shoulder Category: Medical Plan: This is a 58-year-old gentleman with right biceps tendinitis. I injected his right proximal biceps and recommend physical therapy. We had a long discussion regarding activity and treatment options. Orders: Orders PT Evaluation and Treatment Today M75.20 - Bicipital tendinitis, unspecified shoulder Coding Level of Care Code Est Pt Level 3 (88832) Diagnoses Biceps tendonitis M75.20 CPT Codes Coding - Joint 7: 40254 - Glenohumeral/Tronchanteric Bursa/Intraarticular ([id number])
== END 2023-09-30 10:11 | disposition home or self-care (01) ==
PROVIDERS: PCP Internal Medicine; Visit Provider Orthopaedic Surgery
DX: M75.21 Bicipital tendinitis, right shoulder (principal)
CPT/HCPCS: 20610; 99213

== ENCOUNTER → 2023-09-30 09:34 | Outpatient (BNVA) | payer OTHER, SELFPAY | PROVIDERS: PCP Internal Medicine; Visit Provider Orthopaedic Surgery | DX: M75.21 Bicipital tendinitis, right shoulder (principal) | CPT/HCPCS: 20610; J0665; J1100 ==

== ENCOUNTER 2023-12-01 08:49 | Outpatient (REF) | payer OTHER, SELFPAY ==
[2023-12-01 09:59] LABS: Anion Gap 8 (12-20); Blood Urea Nitrogen 20 mg/dL (9-16); Calcium 9.5 mg/dL (8.4-10.2); Carbon Dioxide 34 mmol/L (22-29); Chloride 103 mmol/L (96-108); Cholesterol 270 mg/dL (<200); Estimated Glomerular Filt Rate > 60; Glucose Random 91 mg/dL (60-115); HDL Cholesterol 49 mg/dL (>40); LDL Cholesterol Calculated 190 mg/dL (<100); Potassium 4.9 mmol/L (3.3-5.1); Sodium 140 mmol/L (135-145); Triglycerides 157 mg/dL (<150)
[2023-12-01 10:15] LABS: HIV AB/AG Nonreactive (Nonreactive); HIV Num 1 0.31 S/CO (0.00-0.99); ~HepC Num1 0.24 S/CO (0.00-0.79); ~Hepatitis C Antibody Nonreactive (Nonreactive)
== END 2023-12-01 08:50 | disposition home or self-care (01) ==
LOC: HO.LAB 08:49
PROVIDERS: PCP Internal Medicine; Visit Provider Internal Medicine
DX: E78.00 Pure hypercholesterolemia, unspecified (principal); Z11.3 Encounter for screening for infections with a predominantly sexual mode of transmission
CPT/HCPCS: 36415; 80048; 80061; 86803; 87389

== ENCOUNTER 2023-12-15 09:26 | Outpatient (AMB) | payer OTHER, SELFPAY ==
--- NOTE | 2023-12-15 09:32 | MHC.OFFVIS ---
Intake Visit Reasons: PSA/Testo (set) Intake Note: Patient is Present for PSA/Testosterone Follow up Urology Med: Testosterone Antibiotic Allergy: None Blood Thinner: None LABS: Hemoglobin A1C: 5.6(H) PSA: 09/26/23 0.38 TESTOSTERONE:09/26/23 87 L Cheese Specialist Required: No Accompanied by: Self / Same As Patient Allergies codeine [CODEINE] Allergy (Severe, Verified 12/15/23 09:32) RASH HPI Comments Details: Cayetano is a pleasant male. He is a patient of Dr. Moore. He is seen for the following urologic conditions - hypogonadism - nephrolithiasis - lower urinary tract symptoms Testosterone gel ineffective Discussed testosterone pellets This may be more consistent than injections Does have some needle phobia Lower urinary tract symptoms Primarily nocturia Current therapy includes tamsulosin Hypogonadism Did not respond to AndroGel Switch to injectable therapy - Current therapy 1.0 cc Q 2 week Injection day - Tuesday q2 week, lab Tuesday Labs - 02/28 T 177 H45, 06/28 100, 10/29 T 220, 12/29 T 585 P 0.37, 07/30 T 251 P 0.23, 09/30 87 Nephrolithiasis Prior ureteroscopy for left-sided stones Imaging - 07/30 renal ultrasound left 6 mm stone PFSH Medical History Hypogonadism in male Renal stones Osteoarthritis Hypogonadism History of opioid abuse Surgical History History of excision of mass (~12/24/19) H/O shoulder surgery Social History Advance Directives Date on File: 12/24/19 Review of Systems Const Denies chills and Denies fever(s) Card Reports no additional complaints and Denies syncope Resp Denies cough GI Denies abdominal pain and Denies heartburn Reports as per HPI and Denies change in libido Neuro Denies syncope Psych Denies change in libido Endo Denies change in libido Physical Exam Const General: cooperative, healthy appearing, comfortable and no acute distress Orientation/consciousness: patient oriented x3 HEENT Face and sinus: Yes normal facial exam Mouth: moist mucous membranes Neck Neck: Yes normal visual inspection, Yes full ROM and Yes trachea midline Chest Chest palpation & inspection: normal inspection of the chest Resp Effort & Inspection: normal respiratory effort, able to speak in complete sentences and no respiratory distress GI Inspection: Yes normal to inspection Back/Spine/Pelvis Cervical Spine: normal cervical lordosis Thoracic/Lumbar Spine: thoracic and lumbar spine normal to inspection Skin General skin exam: no rashes or lesions noted Neuro General: patient oriented x3, gait normal, tone normal and moves all extremities Extrem General: Yes normal to inspection and Yes capillary refill normal Assessment & Plan Assessment & Plan (1) Hypogonadism: Category: Medical Plan Plan for testosterone pellet Medications: Refilled testosterone apply 1 pump each arm after showering and rub until dry 2 pumps topical DAILY 30 days 75 grams 5RF E29.1 - Testicular hypofunction, R79.89 - Other specified abnormal findings of blood chemistry Patient Instructions: Imaging studies, laboratory and physical exam results were discussed and reviewed in detail. No major barriers to patient understanding were identified. An opportunity to ask questions regarding the treatment plan was provided. All questions were answered. The patient expressed understanding and agreement with the above treatment plan. The patient is aware they should contact our office by phone for worsening of their current condition or the appearance of new urologic symptoms. Compliance is encouraged with any medications and followup testing that is ordered. It is a privilege to participate in the urologic care of your patient. If you have any questions or concerns regarding treatment for the above conditions, or other urologic issues, please do not hesitate to contact me. The office telephone contact is [phone]. This note is constructed using voice recognition software. While every effort has been made to ensure accuracy repack room worker errors may have been included. Yours sincerely, Dr Colby Carolina MD, [facility] - Urology Providers of Expert, Compassionate Care for the Genitourinary System Coding Level of Care Code Est Pt Level 4 (06699) Diagnoses Hypogonadism
== END 2023-12-15 10:26 | disposition home or self-care (01) ==
LOC: HO.HUSH 09:26
PROVIDERS: PCP Internal Medicine; Visit Provider Urology
DX: E29.1 Testicular hypofunction (principal)
CPT/HCPCS: 99214

== ENCOUNTER → 2024-01-16 14:08 | Outpatient (REF) | payer OTHER, SELFPAY ==
--- NOTE | 2024-01-16 14:13 | CA_ITS ---
Transthoracic Echocardiogram Patient (Last, First, Middle): Kade Catalan G Gender: Male Date of : 1965 Age: 59 Procedure Date: 01/16/2024 Procedure Type: Transthoracic Echocardiogram Location: OP Height: 177. cm Weight: 90.72 kg BSA: 2.08 m2 Heart Rate: 96 bpm BP: 115 / 85 mmHg Cash Applications Specialist: BEN Referring MD: Cj Moore MD Relief Manager: Blake Vu MD Symptoms: LEFT ANTERIOR FASCICULAR BLOCK Study Quality: Fair ECG Rhythm: Sinus Conclusions: - 1. Normal LV ejection fraction of 60 65% with mild LVH with impaired relaxation filling pattern 2. Normal cardiac valvular Doppler 3. Normal RV systolic pressure 4. No gross pericardial effusion Findings Left Ventricle Normal left ventricular size and systolic function. There is mildly increased left ventricular wall thickness. The visually estimated ejection fraction is between 60-65%. Spectral Doppler is indicative of an impaired relaxation filling pattern. Very focal mild asymmetric hypertrophy of the basal septum Right Ventricle Normal right ventricular cavity size and systolic function. Atria The left atrium is likely dilated. Interatrial shunt cannot be excluded. The right atrium is normal in size. Aortic Valve Normal aortic valve structure and function. There is no aortic valve stenosis. There is no aortic valve regurgitation. Mitral Valve Normal mitral valve structure and function. There is no mitral valve regurgitation. There is no mitral valve stenosis. Pulmonic Valve The pulmonic valve is likely normal. There is trace pulmonic valve regurgitation. Tricuspid Valve Normal tricuspid valve structure. There is trace tricuspid valve regurgitation. The right ventricular systolic pressure is normal. The right ventricular systolic pressure is 22 mmHg. Normal right atrial pressure. There is no evidence of pulmonary hypertension. Great Vessels All visible segments of the aorta are normal in size. The pulmonary artery was not well visualized. There is no dilatation of the ascending aorta measuring 3.30 cm. Venous The inferior vena cava is normal in size and collapses greater than 50% with inspiration. Pericardium/Pleural There is no evidence of pericardial effusion. Prior Study Comparison No prior study available for comparison. Measurements 2D Linear Measurements IVSd: 1.23 0.6-0.9/0.6-1.0 cm LVIDd: 3.49 3.9-5.3/4.2-5.9 cm LVIDd Index: 1.68 2.4-3.2/2.2-3.1 cm/m2 LVIDs: 1.78 2.0-3.6 cm LVPWd: 1.19 0.7-1.1 cm LA Diam: 3.50 2.7-3.8/3.0-4.0 cm LAIDs Index: 1.68 1.5-2.3 cm/m2 LV Mass: 170.47 67-162/88-224 g LV Mass Index: 81.96 43-95/49-115 g/m2 LVOT Diam: 2.10 3.0+(-)1.3 cm 2D Systolic Function EF 4C: 63.40 >55% EF 2C: 53.60 >55% EF BiP: 59.60 >55% Mitral Valve MV Pk E: 0.57 MV PK A: 0.77 MV Decel Time: 178.00 E/A: 0.70 E'Lateral: 7.29 E'Medial: 5.00 E/E' Med: 11.50 E/E' Lat: 7.90 PHT: 52.00 MVA PHT: 4.23 Decel Wake: 3.22 Aortic Valve AoV Pk Andres: 0.99 AoV Mn Andres: 0.71 AoV VTI: 0.16 AoV Pk Grad: 4.00 Aov Mn Grad: 2.00 BECK Cont.VTI: 3.75 LVOT LVOT Pk Andres: 0.91 LVOT Mn Andres: 0.69 LVOT VTI: 0.17 LVOT Pk Grad: 3.00 LVOT Mn Grad: 2.00 LVOT Diam: 2.10 LVOT Area: 3.46 Diastolic Function MV Pk E: 0.57 MV Pk A: 0.77 E/A: 0.70 E'Medial: 5.00 E/E' Med: 11.50 E' Laterial: 7.29 E/E' Lat: 7.90 Right Ventricle TAPSE (mm): 25.40 TVS' Andres: 16.20 Tricuspid Valve TR Pk Andres: 2.17 TR Pk Grad: 19.00 RA Press: 3.00 RVSP: 22.00 Great Vessels Aorta Sinus of Valsalva: 3.40 2.0-3.5 cm Ao Asc: 3.30 2.1-3.4 cm Ao Arch: 3.40 Pulmonary Valve PV Pk Andres: 1.53 Peak PV Grad: 9.00 Updated in Other Vendor System with Status of Final Blake Vu MD electronically signed on 01/16/2024 4:32:16 PM with status of Final
== END ==
LOC: HO.CARD 14:08
PROVIDERS: PCP Internal Medicine; Visit Provider Internal Medicine
DX: I45.10 Unspecified right bundle-branch block (principal); I44.4 Left anterior fascicular block
CPT/HCPCS: 93306

== ENCOUNTER → 2024-01-16 14:13 | Outpatient (BNV) | payer OTHER, SELFPAY | PROVIDERS: PCP Internal Medicine; Visit Provider Internal Medicine Cardiovascular Disease | DX: I42.2 Other hypertrophic cardiomyopathy (principal) | CPT/HCPCS: 93306 ==

== ENCOUNTER 2024-01-23 12:56 | Outpatient (RCR) | payer OTHER, SELFPAY | END 2024-03-14 11:46 | disposition home or self-care (01) | LOC: HO.PT 12:56 | PROVIDERS: PCP Internal Medicine; Visit Provider Physician Assistant | DX: M75.21 Bicipital tendinitis, right shoulder (principal) ==

== ENCOUNTER 2024-02-18 18:44 | Outpatient (REF) | payer OTHER, SELFPAY ==
--- NOTE | ~2024-02-18 | MR_ITS ---
EXAMINATION: MRI RIGHT SHOULDER WITHOUT CONTRAST HISTORY: M24.811 - Other specific joint derangements of right shoulder, not elsew... COMPARISON: Correlation is made with plain films of the right shoulder dated 09/26/2023. TECHNIQUE: Coronal T1, T2, and fat suppressed T2, axial fat suppressed proton density, and sagittal T2 weighted MR images of the right shoulder were obtained. FINDINGS: There is a small focus of marrow edema in the greater tuberosity of the humerus with adjacent soft tissue edema. There is mild flattening and cystic change involving the posterolateral aspect of the humeral head, which may reflect a prior Hill-Sachs fracture. There is no glenohumeral joint effusion. There is moderate osteoarthritis of the AC joint with cartilage loss and inferior osteophyte formation causing mass effect on the supraspinatus musculotendinous junction. A small amount of interstitial intrasubstance signal is noted in the supraspinatus tendon without evidence of a tear. The infraspinatus, teres minor, subscapularis tendons appear intact. The biceps tendon is normally located. The glenoid labrum is grossly unremarkable in appearance, although evaluation is limited by lack of a joint effusion. MR/MR shoulder RT wo con IMPRESSION: 1. Small focus of marrow edema in the greater tuberosity of the humerus with adjacent soft tissue edema. No evidence of rotator cuff tear. 2. Moderate osteoarthritis of the AC joint. Possible old Hill-Sachs deformity of the humeral head. Electronically signed by: Fabiano Carpenter MD 02/21/2024 01:34 PM EST
== END 2024-02-18 18:45 | disposition home or self-care (01) ==
LOC: HO.MRI 18:44
PROVIDERS: PCP Internal Medicine; Visit Provider Orthopaedic Surgery
DX: M24.811 Other specific joint derangements of right shoulder, not elsewhere classified (principal)
CPT/HCPCS: 73221

== ENCOUNTER → 2024-02-18 19:04 | Outpatient (BNV) | payer OTHER, SELFPAY | PROVIDERS: PCP Internal Medicine; Visit Provider Radiology Diagnostic Radiology | DX: M24.811 Other specific joint derangements of right shoulder, not elsewhere classified (principal) | CPT/HCPCS: 73221 ==

== ENCOUNTER 2024-02-24 15:15 | Outpatient (RCR) | payer OTHER, SELFPAY ==
--- NOTE | 2023-12-16 15:52 | MHC.PT.EP ---
[facility] [place] Office [place] Office [place] Office [address] Dannie Hernandez [address] [phone] F: [phone] F: [phone] F: [phone] F: [phone] Physical Therapy Plan of Care Date of Evaluation: 12/16/23 Date of Surgery: Diagnosis: Bicipital tendinitis, unspecified shoulder (per MD) RIGHT subacromial impingement syndrome (supra), calcific tendonitis of supra seen on x-ray imaging (PT Dx) RS Assessment: Kade is a 58 yo male who was referred by Jaren Harden MD for Dx of Bicipital tendinitis, RIGHT shoulder. PT diagnosis is RIGHT shoulder impingement with supraspinatus involvement. Difficulty with differential diagnosis due to acute pain and increased muscle guarding, therefore also cannot rule out RTC tear or adhesive capsulitis. X-ray imaging reveals mod ACJ OA and calcific tendonitis of supraspinatus. Impairments include painful and limited shoulder ROM, decreased shoulder and biceps strength, increased muscle guarding and rounded shoulder posture resulting in their inability to reach overhead, lift, or throw objects without pain. 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 Pt will benefit from skilled PT to address impairments and meet their goals. Frequency and Duration: The patient will be seen 2x/week for 4 weeks Short Term Goals: 2 weeks Patient will be able to perform HEP to independently manage condition. Patient will be able to demonstrate proper neutral shoulder positioning for posture to decrease pain symptoms as well as arm swing during gait. [facility] Goals: 4 weeks Patient will increase shoulder ROM to 90 degrees to be able to throw a baseball with his kids. Patient will increase shoulder strength to 4/5 to be able to lift 5 lb weights in the gym. Treatment Plan: Modalities to reduce pain, spasms and effusion. Manual therapy to restore motion and function. Therapeutic exercise to improve strength and flexibility. Neuromuscular re-education for posture and balance. Therapeutic activities to return to functional activities of daily living. Electronically signed by: Elmer Parmar, PT, DPT Please sign and return to therapist. Thank you for your referral.
--- NOTE | 2024-01-23 14:36 | MHC.PT.PR ---
[facility] [place] Office [place] Office [place] Office [address] [phone] F: [phone] F: [phone] F: [phone] F: [phone] Physical Therapy Progress Note Diagnosis: Bicipital tendinitis, unspecified shoulder (per MD) RIGHT subacromial impingement syndrome (supra), calcific tendonitis of supra seen on x-ray imaging (PT Dx) RS Date of Surgery: NA Date of Evaluation: 12/16/23 Treatments to Date: 2 Cancellations to Date: 1 No Shows to Date: 2 Subjective: My pain is worse. I have an MRI scheduled for 02/09/2024 Pain Score and Location: 10 RIGHT shoulder Objective Measures: Please see initial eval on 12/16/23 for details. Assessment: Kade returned to PT after a month as she was advised by ortho to continue PT until he has an MRI on 02/09/2024. His pain is about 10/10 with movements and 0/10 pain at rest. He currently reports of having pain with lifting his arm, reaching forward and side ways. On PT examination he presents with TTP over bicep tendon, decreased shoulder ROM, decreased shoulder and scap strength, and altered posture. He continues to have difficulty with ADLS like reaching forward, side ways and over head. 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 He would benefit from skilled PT 2/week for 6 weeks to address the aforementioned impairments and improve tolerance to functional activities. I taped his bicep and sent home with scap strengthening exercises. Progress per plan. PT Plan: Frequency and Duration: The patient will be seen 2x/week for 4 weeks Treatment Plan: Therapeutic Exercise Dynamic Therapeutic Activities Neuromuscular Re-ed Manual Therapies Joint Mobilization Taping Gait Home Exercise Program Patient Education Electrical Stimulation Iontophoresis Ultrasound Hot or Cold Pack Other Therapist: Latanya Leggett, PT DPT Thank you once again for your referral.
--- NOTE | 2024-03-20 09:27 | MHC.PT.DC ---
[facility] [place] Office [place] Office [employer] Office [address] Dannie Hernandez [address] [phone] F: [phone] F: [phone] F: [phone] F: [phone] Physical Therapy Discharge Report Diagnosis: Bicipital tendinitis, unspecified shoulder (per MD) RIGHT subacromial impingement syndrome (supra), calcific tendonitis of supra seen on x-ray imaging (PT Dx) RS Date of Surgery: NA Date of Evaluation: 12/16/23 Date of Discharge: 03/20/24 Treatments to Date: 5 Cancellations to Date: 3 No Shows to Date: 4 Discharge Status: Visit Non-compliance Discharge Summary: Kade has not been attending PT consistently. He has attended 5 visits, canceled 3 and no showed 4 times in the last 3 months. He canceled his last 2 appointments due to personal reasons and has not called to re-schedule them in over 3 weeks. He is therefore being d/c from PT for no compliance. Electronically signed by: Latanya Leggett PT DPT Please sign and return to therapist. Thank you for your referral.
== END 2024-03-20 09:27 | disposition home or self-care (01) ==
LOC: HO.PT 15:15
PROVIDERS: PCP Internal Medicine; Visit Provider Orthopaedic Surgery
DX: M75.20 Bicipital tendinitis, unspecified shoulder (principal)
CPT/HCPCS: 97033; 97110; 97140; 97161; 97535

== ENCOUNTER 2024-03-09 11:06 | Outpatient (AMB) | payer OTHER, SELFPAY ==
--- NOTE | 2024-03-09 11:07 | A.OFFVIS_ITS ---
Intake Visit Reasons: discussed T replacement- testopel denied Intake Note: Patient is present for DISCUSSED T REPLACEMENT-TESTOPEL DENIED Urology Medication:TESTOSTERONE Antibiotic Allergy:NONE Blood Thinner:NONE Orthopedic Physical Therapist Required: No Allergies codeine [CODEINE] Allergy (Severe, Verified 03/09/24 11:08) RASH HPI Comments Details: Cayetano is a pleasant male. He is a patient of Dr. Moore. He is seen for the following urologic conditions - hypogonadism - nephrolithiasis - lower urinary tract symptoms Telemedicine Evaluation 15 min Consultation [employer] testosterone pellets not covered Testosterone gel ineffective Will restart injection He will bring son into learn how to do injection Did discuss we are looking at alternative sources for pellets Lower urinary tract symptoms Primarily nocturia Current therapy includes tamsulosin Hypogonadism Did not respond to AndroGel Switch to injectable therapy - Current therapy 1.0 cc Q 2 week Injection day - Tuesday q2 week, lab Tuesday Labs - 02/28 T 177 H45, 06/28 100, 10/29 T 220, 12/29 T 585 P 0.37, 07/30 T 251 P 0.23, 09/30 87 Nephrolithiasis Prior ureteroscopy for left-sided stones Imaging - 07/30 renal ultrasound left 6 mm stone PFSH Medical History Hypogonadism in male Renal stones Osteoarthritis Hypogonadism History of opioid abuse Surgical History History of excision of mass (~12/24/19) H/O shoulder surgery Social History Advance Directives Date on File: 12/24/19 Assessment & Plan Assessment & Plan (1) Hypogonadism in male: Code(s): E29.1 - Testicular hypofunction Category: Medical Plan Nurse teaching testosterone Medications: New needle (disp) 18 G (BD Regular Bevel [place]) As directed - draw up testosterone 30 ea 0RF E29.1 - Testicular hypofunction syringe (disposable) (BD Bulk Syringe Slip Tip) As directed 30 ea 0RF E29.1 - Testicular hypofunction Refilled testosterone cypionate (Depo-Testosterone) 200 mg IM Q2W 4 weeks 2 mL 5RF [id number] Patient Instructions: Imaging studies, laboratory and physical exam results were discussed and reviewed in detail. No major barriers to patient understanding were identified. An opportunity to ask questions regarding the treatment plan was provided. All questions were answered. The patient expressed understanding and agreement with the above treatment plan. The patient is aware they should contact our office by phone for worsening of their current condition or the appearance of new urologic symptoms. Compliance is encouraged with any medications and followup testing that is ordered. It is a privilege to participate in the urologic care of your patient. If you have any questions or concerns regarding treatment for the above conditions, or other urologic issues, please do not hesitate to contact me. The office telephone contact is [phone]. This note is constructed using voice recognition software. While every effort has been made to ensure accuracy truck driver instructor errors may have been included. Yours sincerely, Dr Colby Carolina MD, [facility] - Urology Providers of Expert, Compassionate Care for the Genitourinary System Coding Level of Care Code Tele Est Pt Level 3 (50229) Diagnoses Hypogonadism in male E29.1
== END 2024-03-09 13:04 | disposition home or self-care (01) ==
LOC: HO.HUSH 11:06
PROVIDERS: PCP Internal Medicine; Visit Provider Urology
DX: E29.1 Testicular hypofunction (principal)
CPT/HCPCS: 98013

== ENCOUNTER → 2024-03-09 11:06 | Outpatient (BNVA) | payer OTHER, SELFPAY | PROVIDERS: PCP Internal Medicine; Visit Provider Urology ==

== ENCOUNTER → 2024-03-16 09:39 | Outpatient (BNVA) | payer OTHER, SELFPAY | PROVIDERS: PCP Internal Medicine; Visit Provider Urology ==

== ENCOUNTER 2024-03-22 09:03 | Outpatient (AMB) | payer OTHER, SELFPAY ==
[2024-03-22 09:08] VITALS: BMI 31.3
--- NOTE | 2024-03-22 09:08 | MHC.OFFVIS ---
Vital Signs 03/22/24 09:08 Height 5 ft 10 in Weight 218 lb BMI 31.3 Intake Visit Reasons: Tele-RT Shoulder MRI Review [phone] Intake Note: Kade is a 59 year old right hand dominant male who presents today for an MRI review of his right shoulder. Allergies codeine [CODEINE] Allergy (Severe, Verified 03/09/24 11:08) RASH HPI HPI Tele-RT Shoulder MRI Review [phone]: Details: Kade is a 59 year old -- hand dominant male who presents today for an MRI review of his right shoulder. He states he is starting to feel better and has been beginning to workout and contemplating a being his activity level. [facility] Medical History Hypogonadism in male Renal stones Osteoarthritis Hypogonadism History of opioid abuse Surgical History History of excision of mass (~12/24/19) H/O shoulder surgery Social History Advance Directives Date on File: 12/24/19 Physical Exam Vital Signs: BMI result Body Mass Index 31.3 Telehealth Telehealth Telehealth Platform: Telephone Location of provider rendering services: practice address Location of patient: address on file Patient Identification confirmed using: Name, : Yes Telehealth method: voice only Patient verbally consented to treatment: Yes Patient verbally consented to billing insurance company: Yes Patient informed of any privacy concerns related to visit: Yes Minutes spent on Phone/Video with Pt.: 10 Results Reviewed Results Reviewed: I personally reviewed the MR images. IMPRESSION: 1. Small focus of marrow edema in the greater tuberosity of the humerus with adjacent soft tissue edema. No evidence of rotator cuff tear. 2. Moderate osteoarthritis of the AC joint. Possible old Hill-Sachs deformity of the humeral head. Assessment & Plan Assessment & Plan (1) Internal derangement of right shoulder: Code(s): M24.811 - Other specific joint derangements of right shoulder, not elsewhere classified Category: Medical Plan: This is a 59-year-old gentleman with right shoulder discomfort. His symptoms have been improving and I reviewed his MRI. It does look like he may have dislocated in the remote past but he can not recall any specific episodes of dislocation. Is complaints of generalized and the injection I gave him at last visit was mildly helpful for a brief period of time. He feels like he is improving however and wants to start working elbow or. Based on his MRI and discussion with him I think it is reasonable. If his pain worsens he will return to see me but no orthopedic intervention warranted at this time. Coding Level of Care Code Tele Est Pt Level 4 (74097) Diagnoses Internal derangement of right shoulder M24.811
== END 2024-03-22 09:57 | disposition home or self-care (01) ==
LOC: HO.HOS 09:03
PROVIDERS: PCP Internal Medicine; Visit Provider Orthopaedic Surgery
DX: M24.811 Other specific joint derangements of right shoulder, not elsewhere classified (principal)
CPT/HCPCS: 98012

== ENCOUNTER → 2024-03-22 09:03 | Outpatient (BNVA) | payer OTHER, SELFPAY | PROVIDERS: PCP Internal Medicine; Visit Provider Orthopaedic Surgery ==

== ENCOUNTER 2024-05-28 12:02 | Emergency (ER) | payer OTHER, SELFPAY ==
--- NOTE | 2024-05-28 | ECG_ITS ---
Test Reason : CHEST PAIN Blood Pressure : */* mmHG Vent. Rate : 94 BPM Atrial Rate : 94 BPM P-R Int : 148 ms QRS Dur : 88 ms QT Int : 370 ms P-R-T Axes : 58 -58 24 degrees QTcB Int : 462 ms Normal sinus rhythm Left axis deviation Abnormal ECG When compared with ECG of 11-Apr-2021 18:56, Sinus rhythm has replaced Atrial fibrillation Vent. rate has decreased by 54 bpm QRS axis Shifted left Referred By: Generic ED Physician Electronically Signed By: MAURY NORMAN
--- NOTE | ~2024-05-28 | XR_ITS ---
CLINICAL HISTORY: chest pain Single view of the chest. COMPARISON: XR chest dated 07/08/21 at 14:40 EDT FINDINGS: Normal heart size. Mild prominence of the central pulmonary vasculature. No consolidation. No pleural effusion or pneumothorax. No fracture identified. IMPRESSION: 1. No consolidation. 2. Mild central pulmonary vascular congestion. This document has been electronically signed by: Cheo Padilla MD on 05/28/2024 14:33:40
[2024-05-28 12:09] VITALS: BP 145/89; BP 146/81; PULSE 88; PULSE 89; RESP 18; TEMP 36.4; O2SAT 100; O2SAT 98; BMI 28.7
[2024-05-28 12:26] LABS: MANUAL DIFF FLAG NO
[2024-05-28 12:29] LABS: Basophils Absolute Auto 0.1 X10*3/uL (0.0-0.2); Basophils Percent Auto 0.6 % (0-2); Eosinophils Percent Auto 0.4 % (0-4); Hemoglobin 13.6 g/dl (14.0-18.0); Imm Gran Abs Auto 0.02 X10*3/uL (0.00-0.03); Imm Gran Pct Auto 0.2 % (0.0-0.4); Lymphocytes Absolute Auto 0.9 X10*3/uL (1.2-4.9); Lymphocytes Percent Auto 11.5 % (20-40); Mean Corpuscular HGB Conc 32.4 g/dl (31.0-36.0); Mean Corpuscular Hemoglobin 27.5 pg (27.0-33.0); Mean Corpuscular Volume 84.8 fL (80.0-98.0); Mean Platelet Volume 9.4 fL (9.4-12.4); Monocytes Absolute Auto 0.7 X10*3/uL (0.1-1.2); Monocytes Percent Auto 8.4 % (2-11); Neutrophils Absolute Auto 6.3 x10*3/uL (2.0-8.3); Neutrophils Percent Auto 78.9 % (45-73); Platelet Count 236 X10*3/uL (160-400); Red Blood Count 4.95 X10*6/uL (4.60-5.80); Red Cell Distribution Width 14.1 % (11.0-16.0)
[2024-05-28 12:42] LABS: Alanine Aminotransferase 26 U/L (0-40); Albumin Level 4.2 g/dL (3.5-5.0); Alkaline Phosphatase 70 U/L (39-117); Anion Gap 12 (12-20); Aspartate Amino Transferase 53 U/L (5-37); Bilirubin Total 0.9 mg/dL (0.0-1.0); Blood Urea Nitrogen 24 mg/dL (9-16); Calcium 9.3 mg/dL (8.4-10.2); Carbon Dioxide 28 mmol/L (22-29); Chloride 104 mmol/L (96-108); Creatinine Clr Calc Pharmacy 115.4; Estimated Glomerular Filt Rate > 60; Glucose Random 86 mg/dL (60-115); Potassium 4.1 mmol/L (3.3-5.1); Sodium 140 mmol/L (135-145); Total Protein 6.7 g/dL (6.5-8.0)
[2024-05-28 12:49] LABS: Troponin-I High Sensitivity 3.5 ng/L (<3.5-35.0)
--- NOTE | 2024-05-28 13:38 | ED.CHESTPAIN ---
HPI - Chest Pain General Chief Complaint: Chest Pain Stated Complaint: CP,NITRO/ASA GIVEN,IN [employer] CUSTODY PER EMS Time Seen by Provider: 05/28/24 12:34 Source: patient Limitations: no limitations History of Present Illness HPI narrative: This is a 59 years old presented to the emergency department complaining of chest pain he got arrested today he states that he has been getting chest pain on and off for about 3 days he has a history of substance abuse, he has been seen in the emergency department for opioid overdose in the past he also abuse cocaine. There is no radiation of the pain no exertional seen MD complaint: chest pain Onset (ago): day(s) (3) Timing of current episode: episodic Onset: during rest Pain location: substernal Pain radiation: none Severity: mild Quality: aching Relieving factors: nothing Exacerbating factors: nothing Risk Factors Coronary artery disease risk factors: none Related Data Home Medications ?Medication ?Instructions ?Recorded ?Confirmed buprenorphine 12 mg-naloxone 3 mg 15 mg sublingual DAILY 12/04/19 01/20/22 sublingual film omeprazole 20 mg capsule,delayed mg PO 12/04/19 01/20/22 release clonazepam 1 mg tablet 1 tab PO BID PRN Anxiety 12/24/19 05/28/24 gabapentin 600 mg tablet 600 mg PO DAILY 11/13/21 01/20/22 mirtazapine 15 mg tablet 15 mg PO BEDTIME 11/13/21 01/20/22 quetiapine 300 mg tablet 300 mg PO BEDTIME 09/30/23 Previous Rx's ?Medication ?Instructions ?Recorded ibuprofen 800 mg tablet 800 mg PO Q8H PRN pain #14 tabs 12/27/19 leg brace (Ankle Brace) #1 ea 01/16/20 leg brace (Ankle Brace) #1 ea 01/16/20 testosterone 2 pump topical DAILY 30 days #75 12/15/23 grams lorazepam 0.5 mg tablet 0.5 mg PO DAILY PRN anxiety #2 tabs 02/06/24 needle (disp) 18 G 18 gauge x 1 #30 ea 03/09/24 (BD Regular Bevel [place]) syringe (disposable) 1 mL (BD Bulk #30 ea 03/09/24 Syringe Slip Tip) testosterone cypionate 200 mg/mL 200 mg IM Q2W 4 weeks #2 mL 03/09/24 intramuscular oil (Depo-Testosterone) needle (disp) 22 G 22 gauge x 1 #30 ea 03/16/24 cyclobenzaprine 10 mg tablet 10 mg PO BEDTIME #90 tabs 05/10/24 Allergies Allergy/AdvReac Type Severity Reaction Status Date / Time codeine [CODEINE] Allergy Severe RASH Verified 05/28/24 12:12 Review of Systems Constitutional: Constitutional: Reports no additional constitutional complaints Cardiovascular: Cardiovascular: Reports chest pain [facility] Past Medical History [facility] Narrative: Polysubstance abuse Medical History Hypogonadism in male Renal stones Osteoarthritis Hypogonadism History of opioid abuse Surgical History History of excision of mass (~12/24/19) H/O shoulder surgery Social History Social History Unable to assess alcohol history related to: Unknown Alcohol intake: never Smoked in Last 30 Days: No Use of substances other than those prescribed or required for medical reasons: Yes Substance Use Type: Crack/Cocaine Substance Use Frequency: Chronic Longstanding Last Used Substance: Days (ago) Any prior treatment program specific to substance use: No Advance Directives: No Advance Directives Information Provided: Yes Advance Directives Date on File: 12/24/19 Do you have a plan to hurt others: No Plan Physical Exam Vital Signs: Vital Signs: Last Vital Signs Temp 97.5 F 05/28/24 13:50 Pulse 90 05/28/24 14:36 Resp 22 H 05/28/24 14:36 BP 138/84 05/28/24 14:36 Pulse Ox 98 05/28/24 14:36 O2 Del Method Room Air 05/28/24 14:36 BMI result Body Mass Index 28.7 No acute distress comfortable in the stretcher Const: General: cooperative Nutritional Appearance: average body habitus Orientation/consciousness: patient oriented x3 HEENT: Face and sinus: Yes normal facial exam Neck: Neck: Yes normal visual inspection Chest: Chest palpation & inspection: normal inspection of the chest Resp: Effort & Inspection: normal respiratory effort Auscultation: clear to auscultation bilaterally Cardio: Jugular venous distension: no JVD Rate: regular rate Rhythm: regular rhythm GI: Inspection: Yes normal to inspection Palpation (GI): Soft to palpation, not firm and nontender : General: Yes no CVA tenderness Back/Spine/Pelvis: Back: no CVA tenderness Neuro: General: patient oriented x3 Cranial nerves: Yes CN's II-XII intact bilaterally Course Reevaluation(s) Reevaluation #1: Delta trop is flat electrocardiogram is within normal limits the pain he has been going on for about 3 days I think he can be safely discharged home and follow-up with his primary care physician Time: 14:40 Medical Decision Making Medical Decision Making [facility] Narrative: Patient presented to the emergency department with complaint of chest pain for about 3 days we will obtain EKG I sensitive troponin and reassessed Differential Diagnosis Differential Diagnoses: The differential diagnosis associated with the presentation includes Noncardiac chest pain, musculoskeletal pain, acute coronary syndrome Admission/Observation Consideration of admission/observation: Escalation of care including admission/observation considered Lab Data [facility] Lab Attestation statement: I reviewed the patient's lab results. 05/28/24 12:22 05/28/24 12:22 Labs: Lab Results 05/28/24 05/28/24 Range/Units 12:22 13:54 WBC 8.0 (4.8-10.8) X10*3/uL RBC 4.95 (4.60-5.80) X10*6/uL Hgb 13.6 L (14.0-18.0) g/dl Hct 42.0 (42.0-52.0) % MCV 84.8 (80.0-98.0) fL MCH 27.5 (27.0-33.0) pg MCHC 32.4 (31.0-36.0) g/dl RDW 14.1 (11.0-16.0) % Plt Count 236 (160-400) X10*3/uL MPV 9.4 (9.4-12.4) fL Immature Gran % (Auto) 0.2 (0.0-0.4) % Neut % (Auto) 78.9 H (45-73) % Lymph % (Auto) 11.5 L (20-40) % Eaton % (Auto) 8.4 (2-11) % Eos % (Auto) 0.4 (0-4) % Baso % (Auto) 0.6 (0-2) % Lymph # (Auto) 0.9 L (1.2-4.9) X10*3/uL Eaton # (Auto) 0.7 (0.1-1.2) X10*3/uL Eos # (Auto) 0.0 (0.0-0.4) X10*3/uL Baso # (Auto) 0.1 (0.0-0.2) X10*3/uL Abs Immat Gran (auto) 0.02 (0.00-0.03) X10*3/uL Absolute Neuts (auto) 6.3 (2.0-8.3) x10*3/uL Absolute Nucleated RBC 0.000 (0.0-0.012) X10*3/uL Nucleated RBC % (auto) 0.0 (0.0-0.2) /100WBC Hold Blue Top SEE NOTE Sodium 140 (135-145) mmol/L Potassium 4.1 (3.3-5.1) mmol/L Chloride 104 (96-108) mmol/L Carbon Dioxide 28 (22-29) mmol/L Anion Gap 12 (12-20) BUN 24 H (9-16) mg/dL Creatinine 0.80 (0.5-1.4) mg/dL Estim Creat Clear Calc 115.4 Estimated GFR > 60 Random Glucose 86 (60-115) mg/dL Calcium 9.3 (8.4-10.2) mg/dL Magnesium 2.0 (1.6-2.6) mg/dL Total Bilirubin 0.9 (0.0-1.0) mg/dL AST 53 H (5-37) U/L ALT 26 (0-40) U/L Alkaline Phosphatase 70 (39-117) U/L Troponin I High Sens 3.5 3.9 (<3.5-35.0) ng/L Total Protein 6.7 (6.5-8.0) g/dL Albumin 4.2 (3.5-5.0) g/dL Independent Interpretation I performed an independent interpretation of an: EKG and Plain X-Ray Interpretation: Electrocardiogram was reviewed interpreted by me as normal sinus rhythm [address]-T changes normal EKG I reviewed interpreted the chest x-ray as not acute disease Radiology Impression Discussion of test interpretation with radiology: I have reviewed the radiologist's reading. Chronic Conditions Patient?s care impacted by: Other (Opiate abuse) Discharge Plan Discharge Clinical Impression: Chest pain Qualifiers: Chest pain type: other chest pain Qualified Code(s): R07.89 - Other chest pain Patient Disposition: Home, Self-Care Instructions: Chest Pain (DC) Additional Instructions: Follow-up with your primary care physician return to the emergency room if you worse any concern Prescriptions: No Action (DME) Ankle Brace Misc See Rx Instructions .MEDSUPPLY Qty: 1 0RF Rx Instructions: airselect, short (DME) Ankle Brace Misc See Rx Instructions .MEDSUPPLY Qty: 1 0RF Rx Instructions: large stabilizing pro ankle blk l lorazepam 0.5 mg tablet 0.5 mg PO DAILY PRN (Reason: anxiety) Qty: 2 0RF Rx Instructions: take 1 tab 30 mins prior to MRI. 2nd tab prn. Do not drive while taking this medication. cyclobenzaprine 10 mg tablet 10 mg PO BEDTIME Qty: 90 0RF Rx Instructions: 1 tablet by mouth [id number] daily as needed clonazepam 1 mg tablet 1 tab PO BID PRN (Reason: Anxiety) ibuprofen 800 mg tablet 800 mg PO Q8H PRN (Reason: pain) Qty: 14 0RF omeprazole 20 mg capsule,delayed release(DR/EC) PO buprenorphine-naloxone 12-3 mg film 15 mg sublingual DAILY gabapentin 600 mg tablet 600 mg PO DAILY mirtazapine 15 mg tablet 15 mg PO BEDTIME (DME) needle (disp) 22 G 22 gauge x 1 needle See Rx Instructions .Route Qty: 30 1RF Rx Instructions: As directed quetiapine 300 mg tablet 300 mg PO BEDTIME testosterone 20.25 mg/1.25 gram (1.62 %) gel in metered-dose pump 2 pump topical DAILY 30 Days Qty: 75 5RF Rx Instructions: apply 1 pump each arm after showering and rub until dry (DME) needle (disp) 18 G [BD Regular Bevel [place]] 18 gauge x 1 needle See Rx Instructions .MEDSUPPLY Qty: 30 0RF Rx Instructions: As directed - draw up testosterone testosterone cypionate [Depo-Testosterone] 200 mg/mL oil 200 mg IM Q2W 28 Days Qty: 2 5RF (DME) BD Bulk Syringe Slip Tip 1 mL syringe See Rx Instructions miscellaneous .MEDSUPPLY Qty: 30 0RF Rx Instructions: As directed Referrals: Cj Moore MD [Primary Care Provider] - 2 days Print Language: Armenian
[2024-05-28 13:50] VITALS: BP 119/95; PULSE 96; RESP 18; TEMP 36.4; O2SAT 98
[2024-05-28 14:18] LABS: Troponin-I High Sensitivity 3.9 ng/L (<3.5-35.0)
[2024-05-28 14:36] VITALS: BP 138/84; PULSE 90; RESP 22; O2SAT 98
[2024-05-28] MEDS: clonazePAM 1 MG TABLET PO (14:52)
[2024-05-28 14:53] VITALS: BP 138/84; PULSE 90; RESP 22; TEMP 36.4; O2SAT 98
--- NOTE | 2024-05-28 14:57 | PC.NURSE ---
pt released/discharged in PD custody.
== END 2024-05-28 15:29 | disposition home or self-care (01) ==
PROVIDERS: Emergency Provider Emergency Medicine; PCP Internal Medicine
DX: R07.89 Other chest pain (principal); F14.90 Cocaine use, unspecified, uncomplicated; Z79.899 Other long term (current) drug therapy
CPT/HCPCS: 36415; 71045; 80053; 83735; 84484; 85025; 93005; 99283; 99285

== ENCOUNTER → 2024-05-28 12:11 | Outpatient (BNV) | payer OTHER, SELFPAY | PROVIDERS: Emergency Provider Emergency Medicine; PCP Internal Medicine; Visit Provider Internal Medicine | DX: R94.31 Abnormal electrocardiogram [ECG] [EKG] (principal); R07.9 Chest pain, unspecified | CPT/HCPCS: 93010 ==

== ENCOUNTER → 2024-05-28 14:05 | Outpatient (BNV) | payer OTHER, SELFPAY | PROVIDERS: Emergency Provider Emergency Medicine; PCP Internal Medicine; Visit Provider Radiology Diagnostic Radiology | DX: R07.9 Chest pain, unspecified (principal) | CPT/HCPCS: 71045 ==

== ENCOUNTER 2024-06-20 11:44 | Outpatient (RCR) | payer OTHER, SELFPAY ==
--- NOTE | 2024-06-21 12:19 | HO.PS.ADMBH ---
HPI Chief Complaint: JG,anxiety,ADD PMFSH Medical History Hypogonadism in male Renal stones Osteoarthritis Hypogonadism History of opioid abuse Surgical History History of excision of mass (~12/24/19) H/O shoulder surgery Meds/Allergies Meds Home Medications ?Medication ?Instructions ?Recorded ?Confirmed ?Type buprenorphine 12 mg-naloxone 3 mg 15 mg sublingual DAILY 12/04/19 01/20/22 History sublingual film omeprazole 20 mg capsule,delayed mg PO 12/04/19 01/20/22 History release clonazepam 1 mg tablet 1 tab PO BID PRN Anxiety 12/24/19 05/28/24 History gabapentin 600 mg tablet 600 mg PO DAILY 11/13/21 01/20/22 History mirtazapine 15 mg tablet 15 mg PO BEDTIME 11/13/21 01/20/22 History quetiapine 300 mg tablet 300 mg PO BEDTIME 09/30/23 History Allergies Allergies Allergy/AdvReac Type Severity Reaction Status Date / Time codeine [CODEINE] Allergy Severe RASH Verified 05/28/24 12:12 Assessment & Plan Certification I certify that partial hospital treatment is medically necessary due to the symptoms and problems resulting from the patient's mental illness and the failure to treat the patient at the partial hospital level of care would likely result in the patient requiring inpatient psychiatric care which could not be prevented at a less intensive level of care. Time Spent With Patient Time: Total time managing care of this patient today ____ minutes.
== END 2024-06-20 23:59 | disposition home or self-care (01) ==
LOC: HO.PHPA 11:44
PROVIDERS: Visit Provider Psychiatry & Neurology Psychiatry
DX: F14.20 Cocaine dependence, uncomplicated (principal); F32.A Depression, unspecified; F41.1 Generalized anxiety disorder; F90.9 Attention-deficit hyperactivity disorder, unspecified type; F11.11 Opioid abuse, in remission
CPT/HCPCS: 90791

== ENCOUNTER 2024-06-25 14:11 | Outpatient (AMB) | payer OTHER, SELFPAY ==
[2024-06-25 13:06] VITALS: BP 134/86; PULSE 93; TEMP 36.2; O2SAT 98; BMI 30.7
--- NOTE | 2024-06-25 13:06 | A.OFFPC_ITS ---
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 Accompanied by: Self / Same As Patient Allergies codeine [CODEINE] Allergy (Severe, Verified 06/25/24 14:38) RASH Medication List - Last Reconciled 06/25/24 by Eyal Hess MD atorvastatin 10 mg PO DAILY clonazepam 1 tab PO BID PRN clonidine HCl mg PO cyclobenzaprine 10 mg PO Q12H PRN ibuprofen 800 mg PO Q8H PRN leg brace (Ankle Brace) airselect, short leg brace (Ankle Brace) large stabilizing pro ankle blk l needle (disp) 18 G (BD Regular Bevel [place]) As directed - draw up testosterone needle (disp) 22 G As directed omeprazole mg PO quetiapine 300 mg PO BEDTIME syringe (disposable) (BD Bulk Syringe Slip Tip) As directed testosterone 2 pumps topical DAILY 30 days testosterone cypionate (Depo-Testosterone) 200 mg IM Q2W 4 weeks Tobacco use date assessed: 06/25/24 Dental Screening Dental Screen Date: 06/25/24 Did you have a dental visit in the last 12 months?: Yes Did you have a dental problem in the last 6 months where you did not have access to dental care?: No PFSH Medical History Hyperlipidemia Hypogonadism in male Renal stones Osteoarthritis Hypogonadism History of opioid abuse Surgical History History of excision of mass (~12/24/19) H/O shoulder surgery Family History Mother No problems noted. Father No problems noted. Social History Household Members: Family Housing: Apartment Unable to assess alcohol history related to: Unknown Alcohol intake: never Patient Tobacco Use Status: Never used Tobacco e-Cigarette/Vaping Use: Never Used Substance Use Type: Crack/Cocaine Advance Directives Date on File: 12/24/19 service: No Current occupational status: employed and retired Cognitive needs: No Hearing needs: No Vision needs: Yes (reading glasses) Questionnaire PHQ-9 Over the last 2 weeks, how often have you been bothered by any of the following problems? 1. Little interest or pleasure in doing things: not at all 2. Feeling down, depressed, or hopeless: not at all 3. Trouble falling or staying asleep, or sleeping too much: not at all 4. Feeling tired or having little energy: not at all 5. Poor appetite or overeating: not at all 6. Feeling bad about yourself - or that you are a failure or have let yourself or your family down: not at all 7. Trouble concentrating on things, such as reading the newspaper or watching television: not at all 8. Moving or speaking so slowly that other people could have noticed. Or the opposite - being so fidgety or restless that you have been moving around a lot more than usual: not at all 9. Thoughts that you would be better off or of hurting yourself in some way: not at all Total score: 0 Depression Screening Interpretation: Negative Depression Screening Done: Yes Source: Developed by Drs. Fabiano Dc, Trudy Gates, Broderick Barber and colleagues, with an educational jose eduardo from [employer]. Thrive Questionnaire Date Thrive assessed: 06/25/24 I am a: Patient Within the past 12 months, did the food you bought not last and you didn't have the money to get more?: Never true Within the past 12 months, did you worry whether your food would run out before you got money to buy more?: Never true Do you have trouble paying for medicines?: No Do you have trouble getting transportation to medical appointments?: No Do you have trouble paying your heating and electricity bill?: No Do you have trouble taking care of your child, family member or friend?: No Do you have trouble with day-to-day activities such as bathing, preparing meals, shopping, managing finances, etc.?: No Are you currently unemployed and looking for a job?: No Are you interested in more education?: No Currently or been in a relationship where the following occur: No concerns reported THRIVE Score: 0 AUDIT C Alcohol Use Questionnaire (AUDIT-C) 1. How often do you have a drink containing alcohol?: Never 3. How often do you have six or more drinks on one occasion?: Never Total Score: 0 AMARJIT-7 AMB Questionnaire AMARJIT-7 Date AMARJIT - 7 assessed: 06/25/24 Feeling nervous, anxious, or on edge: 0 = Not at all Not being able to stop or control worryin = Not at all Worrying too much about different things: 0 = Not at all Trouble relaxin = Not at all Being so restless that it is hard to sit still: 0 = Not at all Becoming easily annoyed or irritable: 0 = Not at all Feeling afraid as if something awful might happen: 0 = Not at all Total AMARJIT-7 score (0-4 normal; 5-9 mild; 10-14 moderate; 15-21 severe): 0 Source: Developed by Drs. Fabiano Dc, Trudy Gates, Broderick Barber and colleagues, with an educational jose eduardo from [employer]. Physical exam (Primary Care) Vital Signs: Last Vital Signs Temp 97.1 F 06/25/24 13:06 Pulse 93 06/25/24 13:06 BP 134/86 06/25/24 13:06 Pulse Ox 98 06/25/24 13:06 Oxygen Delivery Method Room Air 06/25/24 13:06 Care Plan Goal for BP management: BP in range BMI result Body Mass Index 30.7 BMI Assessment/Plan discussion: High (one pound per week weight loss suggested.) BMI High, discussed plan: lifestyle, weight reduction and dietary Tobacco/Smoking Status: Tobacco use Status Tobacco use date assessed 06/25/24 06/25/24 13:08 Patient Tobacco Use Status Never used Tobacco 06/25/24 13:08 e-Cigarette/Vaping Use Never Used 06/25/24 13:08 PHQ-9: PHQ-9 Score PHQ-9: Total score 0 06/25/24 14:23 Depression Screening Interpretation: Negative Thrive Assessment: Date of Thrive Assessment Date Thrive assessed 06/25/24 06/25/24 13:08 Currently or been in a relationship where the following occur: No concerns reported Coding Level of Care Code New Pt Level 4 (69392) Complex EM visit Add On G2211 Diagnoses Hyperlipidemia E78.5 History of opioid abuse F11.11 Assessment & Plan Assessment & Plan (1) Hyperlipidemia: Code(s): E78.5 - Hyperlipidemia, unspecified Category: Medical Plan: BW ordered. Will adjust statin dosage accordingly. (2) History of opioid abuse: Code(s): F11.11 - Opioid abuse, in remission Category: Medical Plan: On Sublocade injections. Dosage being tapered. Gives history of PTSD and ADHD. Would like to see a mental health provider. Appt requested. Plan History of Present Illness The patient is a 59-year-old male presenting for a comprehensive physical examination in conjunction with management of chronic insomnia, ADHD, PTSD, and a review of his current health status, particularly concerning hyperlipidemia and prediabetes. He mentions previous treatment for hyperlipidemia but has misplaced the necessary lab slip for continued evaluation. Moreover, the patient expresses concern about prediabetes, seeking an extensive assessment that includes routine blood work and assessments of liver, kidney, and prostate health. Regarding his psychiatric history, he reports chronic insomnia, previously managed with Seroquel 300 mg, but is currently unable to access this medication due to changes in psychiatric care. There is also a history of ADHD and PTSD, with past psychiatric evaluations recommending [facility] for [facility]. The patient's previous medical support for these conditions has been disrupted due to the unavailability of his psychiatrist. He mentions considerations for trying Vyvanse again as an ADHD management strategy. Social History - Employment: Formerly worked at the [employer], now on hiatus. - Substance Use: Reports no smoking or alcohol use. - Past Substance Use: History of opioid use disorder, managed with Suboxone for 10 years. - Physical Activity: No specific details discussed. - Family: Son is in the [employer]. Review of Systems - Neurological/Psychiatric: Reports ADHD, PTSD; denies other neurological symptoms. - Metabolic/Endocrine: Concerns about prediabetes. - Sleep: Reports chronic insomnia. - Cardiovascular: Denies additional cardiovascular symptoms. Physical Exam General: Cooperative and healthy appearing Nutritional Appearance: Well nourished Orientation/consciousness: Patient oriented x3 Limitations: No limitations Head: Normal to inspection General: Appearance normal, both eyes and all related structures Neck: Normal visual inspection Chest: Normal palpation of entire chest wall Respiratory: N ormal respiratory effort Neurology: Patient oriented x3, but reports difficulty concentrating in the morning due to ADHD and PTSD. Results Plan 1. Hyperlipidemia - Perform lab tests for lipid profile. - Assess and adjust medications as needed. 2. Prediabetes - Obtain fasting glucose and HbA1c levels. - Advise diet and lifestyle changes. 3. Chronic Insomnia - Prescribe Seroquel 300 mg. - Ensure follow-up with psychiatrist. 4. Adhd - Consider starting Vyvanse after evaluation. - Refer to psychiatry for management. 5. Ptsd - Ensure psychiatric consultation in [place]. - Recommend therapeutic interventions. 6. Opioid Use Disorder, In Sustained Remission - Continue Suboxone reduction strategy. - Monitor for withdrawal symptoms. Discussion Notes I discussed with the patient the plan to conduct a comprehensive physical exam and lab work to evaluate his hyperlipidemia and concerns regarding prediabetes. We addressed his insomnia and I will prescribe Seroquel 300 mg while also facilitating a referral to a psychiatry provider in [place] for further management of his ADHD and PTSD, considering a trial of Vyvanse. The patient is currently weaning off Suboxone, and we discussed a tapering strategy. I informed him of the potential implications for withdrawal symptoms. Patient Instructions - Fast after midnight today and go for blood work tomorrow. - Take prescribed Seroquel 300 mg as directed. - Schedule an appointment with the psychiatrist in [place]. - Follow the Suboxone tapering schedule. - Continue discussing potential ADHD treatments during the psychiatry appointment. - Report any worsening symptoms or if unable to manage the sleep disturbances. Orders: Orders Complete Blood Count no Diff Today E78.5 - Hyperlipidemia, unspecified Basic Metabolic Panel Today E78.5 - Hyperlipidemia, unspecified Lipid Panel Today E78.5 - Hyperlipidemia, unspecified Liver Panel Today E78.5 - Hyperlipidemia, unspecified UA and rflx microscopic Today E78.5 - Hyperlipidemia, unspecified Thyroid Stimulating Hormone Today E78.5 - Hyperlipidemia, unspecified Referrals Psychiatry Outpatient Consultation Service F11.11 - Opioid abuse, in remission, F43.10 - Post-traumatic stress disorder, unspecified Medications: New quetiapine 300 mg PO BEDTIME 90 tabs 1RF
== END 2024-06-25 14:34 | disposition home or self-care (01) ==
LOC: HO.HMCHD 14:12
PROVIDERS: PCP Internal Medicine; Visit Provider Internal Medicine
DX: E78.5 Hyperlipidemia, unspecified (principal); F11.11 Opioid abuse, in remission

== ENCOUNTER → 2024-06-25 14:11 | Outpatient (BNVA) | payer OTHER, SELFPAY | PROVIDERS: PCP Internal Medicine; Visit Provider Internal Medicine | DX: E78.5 Hyperlipidemia, unspecified (principal); F11.11 Opioid abuse, in remission; G47.00 Insomnia, unspecified; F90.9 Attention-deficit hyperactivity disorder, unspecified type; F43.10 Post-traumatic stress disorder, unspecified | CPT/HCPCS: 96127; 99202 ==

== ENCOUNTER 2024-08-23 08:24 | Outpatient (REF) | payer OTHER, SELFPAY ==
[2024-08-23 08:56] LABS: Hematocrit 42.8 % (42.0-52.0); Hemoglobin 13.9 g/dl (14.0-18.0); Mean Corpuscular HGB Conc 32.5 g/dl (31.0-36.0); Mean Corpuscular Hemoglobin 27.2 pg (27.0-33.0); Mean Corpuscular Volume 83.8 fL (80.0-98.0); NRBC Abs Auto 0.000 X10*3/uL (0.0-0.012); NRBC Pct Auto 0.0 /100WBC (0.0-0.2); Platelet Count 197 X10*3/uL (160-400); Red Blood Count 5.11 X10*6/uL (4.60-5.80); White Blood Count 4.4 X10*3/uL (4.8-10.8)
[2024-08-23 09:27] LABS: Alanine Aminotransferase 32 U/L (0-40); Albumin Level 4.1 g/dL (3.5-5.0); Alkaline Phosphatase 66 U/L (39-117); Anion Gap 8 (12-20); Aspartate Amino Transferase 29 U/L (5-37); Blood Urea Nitrogen 17 mg/dL (9-16); Calcium 8.4 mg/dL (8.4-10.2); Carbon Dioxide 30 mmol/L (22-29); Chloride 109 mmol/L (96-108); Cholesterol 183 mg/dL (<200); Estimated Glomerular Filt Rate > 60; HDL Cholesterol 41 mg/dL (>40); Potassium 4.2 mmol/L (3.3-5.1); Sodium 143 mmol/L (135-145); Total Protein 6.5 g/dL (6.5-8.0); Triglycerides 82 mg/dL (<150)
[2024-08-23 09:40] LABS: Prostate Specific Antigen 0.32 ng/mL (<0.05-4.0)
[2024-08-23 09:43] LABS: Thyroid Stimulating Hormone 2.21 uIU/mL (0.32-4.0)
[2024-08-23 14:12] LABS: Appearance Urine Clear; Glucose Urine UA Negative (Negative); PH 7.0 (5.0-9.0); Specific Gravity - Urine >= 1.030 (1.005-1.025)
== END 2024-08-23 08:25 | disposition home or self-care (01) ==
LOC: HO.LAB 08:24
PROVIDERS: Absent Provider Urology; PCP Internal Medicine; Visit Provider Internal Medicine
DX: E78.5 Hyperlipidemia, unspecified (principal)
CPT/HCPCS: 36415; 80048; 80061; 80076; 81003; 84153; 84403; 84443; 85027

== ENCOUNTER 2024-09-21 13:25 | Outpatient (AMB) | payer OTHER, SELFPAY ==
--- NOTE | 2024-09-21 13:26 | MHC.OFFVIS ---
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 He is a patient of Dr. Moore. He is seen for the following urologic conditions - hypogonadism - nephrolithiasis - lower urinary tract symptoms On testosterone injection Number stable Labs 08/31 870 0.3 42 Erectile dysfunction Trial tadalafil Refill prescription Lower urinary tract symptoms Primarily nocturia Current therapy includes tamsulosin Hypogonadism Did not respond to AndroGel Testosterone pellets not covered by insurance Switch to injectable therapy - Current therapy 1.0 cc Q 2 week Injection day - Tuesday q2 week, lab Tuesday Labs - 02/28 T 177 H45, 06/28 100, 10/29 T 220, 12/29 T 585 P 0.37, 07/30 T 251 P 0.23, 09/30 87 Nephrolithiasis Prior ureteroscopy for left-sided stones Imaging - 07/30 renal ultrasound left 6 mm stone PFS Medical History Hyperlipidemia Hypogonadism in male Renal stones Osteoarthritis Hypogonadism History of opioid abuse Surgical History History of excision of mass (~12/24/19) H/O shoulder surgery Family History Mother No problems noted. Father No problems noted. Social History Household Members: Family Housing: Apartment Unable to assess alcohol history related to: Unknown Alcohol intake: never Patient Tobacco Use Status: Never used Tobacco e-Cigarette/Vaping Use: Never Used Substance Use Type: Crack/Cocaine Advance Directives Date on File: 12/24/19 service: No Current occupational status: employed and retired Cognitive needs: No Hearing needs: No Vision needs: Yes (reading glasses) Review of Systems Const Denies chills and Denies fever(s) Card Reports no additional complaints and Denies syncope Resp Denies cough GI Denies abdominal pain and Denies heartburn Reports as per HPI and Denies change in libido Neuro Denies syncope Psych Denies change in libido Endo Denies change in libido Physical Exam Const General: cooperative, healthy appearing, comfortable and no acute distress Orientation/consciousness: patient oriented x3 HEENT Face and sinus: Yes normal facial exam Mouth: moist mucous membranes Neck Neck: Yes normal visual inspection, Yes full ROM and Yes trachea midline Chest Chest palpation & inspection: normal inspection of the chest Resp Effort & Inspection: normal respiratory effort, able to speak in complete sentences and no respiratory distress GI Inspection: Yes normal to inspection Back/Spine/Pelvis Cervical Spine: normal cervical lordosis Thoracic/Lumbar Spine: thoracic and lumbar spine normal to inspection Skin General skin exam: no rashes or lesions noted Neuro General: patient oriented x3, gait normal, tone normal and moves all extremities Extrem General: Yes normal to inspection and Yes capillary refill normal Assessment & Plan Assessment & Plan (1) Hypogonadism in male: Code(s): E29.1 - Testicular hypofunction Category: Medical (2) Erectile dysfunction: Code(s): N52.9 - Male erectile dysfunction, unspecified Category: Medical Plan Refill testosterone Lab work six-month Trial tadalafil Orders: Orders Prostate Specific Antigen 5 Months E29.1 - Testicular hypofunction Testosterone, Total 5 Months E29.1 - Testicular hypofunction Hematocrit 5 Months E29.1 - Testicular hypofunction Medications: New tadalafil [id number] [facility] [id number] Member [id number] 20 mg PO 1XD PRN 30 tabs 1RF sexual activity 30 days N52.9 - Male erectile dysfunction, unspecified Refilled testosterone cypionate (Depo-Testosterone) 200 mg IM Q2W 2 mL 5RF 4 weeks [id number] needle (disp) 22 G As directed 30 ea 1RF E29.1 - Testicular hypofunction Discontinued testosterone apply 1 pump each arm after showering and rub until dry Discontinued Reason: Doctor's Order 2 pumps topical DAILY 30 days 75 grams 5RF E29.1 - Testicular hypofunction, R79.89 - Other specified abnormal findings of blood chemistry Patient Instructions: This note is constructed using voice recognition software. While every effort has been made to ensure accuracy volunteer coordinator errors may have been included. Imaging studies, laboratory and physical exam results were discussed and reviewed in detail. No major barriers to patient understanding were identified. An opportunity to ask questions regarding the treatment plan was provided. All questions were answered. The patient expressed understanding and agreement with the above treatment plan. The patient is aware they should contact our office by phone for worsening of their current condition or the appearance of new urologic symptoms. Compliance is encouraged with any medications and followup testing that is ordered. It is a privilege to participate in the urologic care of your patient. If you have any questions or concerns regarding treatment for the above conditions, or other urologic issues, please do not hesitate to contact me. The office telephone contact is [phone]. Sincerely, Dr Colby Carolina MD, [facility] - Urology Compassionate Specialist Care for the Genitourinary System Coding Level of Care Code Est Pt Level 4 (69960) Diagnoses Hypogonadism in male E29.1 Erectile dysfunction N52.9
== END 2024-09-21 13:58 | disposition home or self-care (01) ==
LOC: HO.HUSH 13:25
PROVIDERS: PCP Internal Medicine; Visit Provider Urology
DX: E29.1 Testicular hypofunction (principal); N52.9 Male erectile dysfunction, unspecified
CPT/HCPCS: 99214

== ENCOUNTER → 2024-09-21 13:25 | Outpatient (BNVA) | payer OTHER, SELFPAY | PROVIDERS: PCP Internal Medicine; Visit Provider Urology | DX: E29.1 Testicular hypofunction (principal); N52.9 Male erectile dysfunction, unspecified | CPT/HCPCS: 99212 ==

== ENCOUNTER 2024-10-09 09:57 | Outpatient (AMB) | payer OTHER, SELFPAY ==
[2024-10-09 08:54] VITALS: BP 122/78; PULSE 86; TEMP 36.7; O2SAT 97; BMI 33.0
--- NOTE | 2024-10-09 08:54 | MHC.PC.OV ---
Vital Signs 10/09/24 08:54 Height 5 ft 10 in Weight 230 lb BMI 33.0 BP 122/78 Blood Pressure Location Lt brachial Position Sitting Pulse 86 Pulse Source Pulse Oximeter Temp 98.1 F Temp Source Temporal Artery Scan Pulse Oximetry (%) 97 Oxygen Delivery Method Room Air Intake Visit Reasons: 3 month f/u Ip Litigation Paralegal Required: No Accompanied by: Self / Same As Patient Allergies codeine (CODEINE) Allergy (Severe, Verified 10/09/24 08:54) RASH Tobacco use date assessed: 10/09/24 Dental Screening Dental Screen Date: 10/09/24 Did you have a dental visit in the last 12 months?: Yes Did you have a dental problem in the last 6 months where you did not have access to dental care?: No HPI HPI Comments History of Present Illness Details 59 year old male with History of substance abuse, HLD, Hypogonadism, PreDM, Osteoarthritis, and GERD here for follow up and to discuss weight loss. He is on Atorvastastin. He had labs done in August and cholesterol was 183. He is followed by Dr. Carolina, Urologist for his hypogonadism. He is taking Ibuprofen PRN and Cyclobenzaprine for his back and joint pains. He is on Omeprazole for GERD. He is taking Seroquel at night for Insomnia. He has been trying to lose weight without sucess. His BMI today was 33.0. He would like to try a GLP1 injection to lose weight. He is due for A1C for PreDM. He has a cologuard at home but has not completed it yet. [facility] Medical History (Updated 10/09/24 @ 12:56 by JAZMIN Roberto) Chronic back pain History of opioid abuse Hyperlipidemia Hypogonadism Hypogonadism in male Obesity (BMI 30.0-34.9) Osteoarthritis Pre-diabetes Renal stones Surgical History H/O shoulder surgery History of excision of mass (~12/24/19) Family History Mother No problems noted. Father No problems noted. Social History Household Members: Family Housing: Apartment Unable to assess alcohol history related to: Unknown Alcohol intake: never Patient Tobacco Use Status: Never used Tobacco e-Cigarette/Vaping Use: Never Used Substance Use Type: Crack/Cocaine Advance Directives Date on File: 12/24/19 service: No Current occupational status: employed and retired Cognitive needs: No Hearing needs: No Vision needs: Yes (reading glasses) Questionnaire PHQ-9 Over the last 2 weeks, how often have you been bothered by any of the following problems? 1. Little interest or pleasure in doing things: not at all 2. Feeling down, depressed, or hopeless: nearly every day 3. Trouble falling or staying asleep, or sleeping too much: not at all 4. Feeling tired or having little energy: nearly every day 5. Poor appetite or overeating: not at all 6. Feeling bad about yourself - or that you are a failure or have let yourself or your family down: not at all 7. Trouble concentrating on things, such as reading the newspaper or watching television: not at all 8. Moving or speaking so slowly that other people could have noticed. Or the opposite - being so fidgety or restless that you have been moving around a lot more than usual: not at all 9. Thoughts that you would be better off or of hurting yourself in some way: not at all Total score: 6 Source: Developed by Drs. Fabiano Dc, Trudy Gates, Broderick Barber and colleagues, with an educational jose eduardo from [employer]. Thrive Questionnaire Date Thrive assessed: 10/09/24 I am a: Patient Within the past 12 months, did the food you bought not last and you didn't have the money to get more?: Never true Within the past 12 months, did you worry whether your food would run out before you got money to buy more?: Never true Do you have trouble paying for medicines?: No Do you have trouble getting transportation to medical appointments?: No Do you have trouble paying your heating and electricity bill?: No Do you have trouble taking care of your child, family member or friend?: No Do you have trouble with day-to-day activities such as bathing, preparing meals, shopping, managing finances, etc.?: No Are you currently unemployed and looking for a job?: No Are you interested in more education?: No THRIVE Score: 0 AUDIT C Alcohol Use Questionnaire (AUDIT-C) 1. How often do you have a drink containing alcohol?: Never 3. How often do you have six or more drinks on one occasion?: Never Total Score: 0 AMARJIT-7 AMB Questionnaire AMARJIT-7 Date AMARJIT - 7 assessed: 10/09/24 Feeling nervous, anxious, or on edge: 3 = Nearly every day Not being able to stop or control worryin = Not at all Worrying too much about different things: 0 = Not at all Trouble relaxin = Not at all Being so restless that it is hard to sit still: 0 = Not at all Becoming easily annoyed or irritable: 0 = Not at all Feeling afraid as if something awful might happen: 0 = Not at all Total AMARJIT-7 score (0-4 normal; 5-9 mild; 10-14 moderate; 15-21 severe): 3 Source: Developed by Drs. Fabiano Dc, Trudy Gates, Broderick Barber and colleagues, with an educational jose eduardo from [employer]. Review of Systems Const Details: CONSTITUTIONAL Negative HEAD/NECK Negative EAR/NOSE/MOUTH/THROAT Negative RESPIRATORY Negative CARDIOVASCULAR Negative GASTROINTESTINAL Heartburn- Controlled with Omeprazole MUSCULOSKELETAL low back pain NEUROLOGICAL Negative PSYCHIATRIC Anxiety Insomnia Physical exam (Primary Care) Vital Signs: Last Vital Signs Temp 98.1 F 10/09/24 08:54 Pulse 86 10/09/24 08:54 BP 122/78 10/09/24 08:54 Pulse Ox 97 10/09/24 08:54 Oxygen Delivery Method Room Air 10/09/24 08:54 BMI result Body Mass Index 33.0 GENERAL Well developed, obese, in no apparent distress HEENT Head-Normocephalic Eyes- PERRLA, EOMI, Conjuctiva clear, lids WNL Ears- Canals clear, TMs WNL Mouth/Throat-No lesions, no erythema, no exudate Neck- Supple, No lymphadenopathy, thyroid WNL RESPIRATORY Normal I:E, Clear to auscultation CARDIOVASCULAR Regular, rate and rhYthm, No murmurs or rubs GASTROINTESTINAL Soft, nontender, normal bowel sounds, no masses MUSCULOSKELETAL Back-Decreased ROM, Tender in Lumbar with muscle tightness, Tender with motion, Straight leg raise negative, DTR 2+ symmetrical, Gait normal NEUROLOGICAL Gait normal PSYCHIATRIC Oriented to person, place and time Mood and affect WNL Appearance WNL Speech WNL Thought processes WNL Tobacco/Smoking Status: Tobacco use Status Tobacco use date assessed 10/09/24 10/09/24 08:55 Patient Tobacco Use Status Never used Tobacco 10/09/24 08:55 e-Cigarette/Vaping Use Never Used 10/09/24 08:55 PHQ-9: PHQ-9 Score PHQ-9: Total score 6 10/09/24 12:40 Thrive Assessment: Date of Thrive Assessment Date Thrive assessed 10/09/24 10/09/24 08:55 Coding Level of Care Code Established Pt Est Pt Level 4 (01564) Patient Type Established Diagnoses Pre-diabetes R73.03 Hypogonadism Mixed hyperlipidemia E78.2 Hyperlipidemia type: mixed hyperlipidemia Chronic back pain M54.9; G89.29 Obesity (BMI 30.0-34.9) E66.811 Time Spent (min) 30 Comment Time spent on chart review, H&P, patient education, submitting orders and follow up Assessment & Plan Assessment & Plan (1) Pre-diabetes: Code(s): R73.03 - Prediabetes Category: Medical Plan: Will check A1C. Reviewed diet and exercise. (2) Hypogonadism: Category: Medical Plan: Patient to continue to follow up with Urology (3) Hyperlipidemia: Code(s): E78.5 - Hyperlipidemia, unspecified Category: Medical Qualifiers: Hyperlipidemia type: mixed hyperlipidemia Qualified Code(s): E78.2 - Mixed hyperlipidemia Plan: OK on Atorvastatin. Patient will continue current medications. Will monitor. Patient will follow up in 6 months. (4) Chronic back pain: Code(s): M54.9 - Dorsalgia, unspecified; G89.29 - Other chronic pain Category: Medical Plan: Will refill Cyclobenzaprine. Patient will continue current medications. Will monitor. Patient will follow up in 6 months. (5) Obesity (BMI 30.0-34.9): Code(s): E66.811 - Obesity, class 1 Category: Medical Plan: BMI today was 33.0. Treatment options discussed with patient at length. Will try for Wegovy. Patient to follow up in 8 weeks or sooner if needed Orders: Orders Hemoglobin A1c Today E78.5 - Hyperlipidemia, unspecified, G89.29 - Other chronic pain, M54.9 - Dorsalgia, unspecified, R73.03 - Prediabetes Medications: New semaglutide (weight loss) (Waqar) administer weeks 1 through 4 of therapy 0.25 mg (0.5 mL) subcut QWEEK 2 mL 0RF Refilled cyclobenzaprine 1 tablet by mouth twice daily as needed 10 mg PO Q12H PRN 180 tabs 1RF muscle spasm quetiapine 300 mg PO BEDTIME 90 tabs 1RF
== END 2024-10-09 10:51 | disposition home or self-care (01) ==
LOC: HO.HMCHD 09:57
PROVIDERS: PCP Internal Medicine; Visit Provider Physician Assistant Medical
DX: R73.03 Prediabetes (principal); E66.811 Obesity, class 1; Z68.33 Body mass index [BMI] 33.0-33.9, adult; E78.2 Mixed hyperlipidemia; M54.9 Dorsalgia, unspecified; G89.29 Other chronic pain

== ENCOUNTER → 2024-10-09 09:57 | Outpatient (BNVA) | payer OTHER, SELFPAY | PROVIDERS: PCP Internal Medicine; Visit Provider Physician Assistant Medical | DX: R73.03 Prediabetes (principal); E29.1 Testicular hypofunction; E78.2 Mixed hyperlipidemia; M54.9 Dorsalgia, unspecified; G89.29 Other chronic pain; E66.811 Obesity, class 1; Z68.33 Body mass index [BMI] 33.0-33.9, adult; Z79.899 Other long term (current) drug therapy; Z13.39 Encounter for screening examination for other mental health and behavioral disorders; Z13.30 Encounter for screening examination for mental health and behavioral disorders, unspecified | CPT/HCPCS: 99212 ==

== ENCOUNTER 2024-10-11 12:43 | Outpatient (REF) | payer OTHER, SELFPAY ==
[2024-10-11 13:41] LABS: Hemoglobin A1C 139.6037 umol/L; Total Hemoglobin (HGBA1C) 3589.9944 umol/L
== END 2024-10-11 12:44 | disposition home or self-care (01) ==
LOC: HO.LAB 12:43
PROVIDERS: Visit Provider Physician Assistant Medical
DX: R73.03 Prediabetes (principal); E78.5 Hyperlipidemia, unspecified; M54.9 Dorsalgia, unspecified; G89.29 Other chronic pain
CPT/HCPCS: 36415; 83036

== ENCOUNTER 2024-10-24 09:55 | Outpatient (AMB) | payer OTHER, SELFPAY ==
[2024-10-24 09:58] VITALS: BP 116/72; PULSE 78; BMI 32.6
--- NOTE | 2024-10-24 09:58 | MHC.OFFVIS ---
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 Intake Note: New patient elevated cholesterol and palpitations with ekg feeling better Display Specialist Required: No Allergies codeine (CODEINE) Allergy (Severe, Verified 10/09/24 08:54) RASH Medication List - Last Reconciled 10/24/24 by Blake Vu MD atorvastatin 10 mg PO DAILY clonazepam 0.5 mg PO PRN clonidine HCl 0.2 mg PO PRN cyclobenzaprine 10 mg PO Q12H PRN ibuprofen 800 mg PO Q8H PRN leg brace (Ankle Brace) airselect, short leg brace (Ankle Brace) large stabilizing pro ankle blk l needle (disp) 18 G (BD Regular Bevel Elrosa) As directed - draw up testosterone needle (disp) 22 G As directed omeprazole 20 mg PO DAILY quetiapine 100 mg PO BEDTIME syringe (disposable) (BD Bulk Syringe Slip Tip) As directed tadalafil 20 mg PO 1XD PRN 30 days testosterone cypionate (Depo-Testosterone) 200 mg IM Q2W 4 weeks tirzepatide (weight loss) (Zepbound) 2.5 mg (0.5 mL) subcut QWEEK HPI Comments Details: Kade was referred here for management of hyperlipidemia. He is a 59-year-old male with prior crack cocaine abuse which she has been sober for about 7 months as per him and currently undergoing treatment for the same. He says since then he has significantly improved his lifestyle, eating much better and then exercising on a regular basis. He said he plays basketball with people younger than him in his able to go back and forth the cord without any issues. He also can hike for 5-7 miles without any issues. No exertional chest pain or shortness of breath. He had significant hyperlipidemia in the past with LDL above 190, currently on low-dose atorvastatin and with lifestyle modification his LDL is improved into the 115 range. He denies any other cardiac symptoms. No lightheadedness, syncope. He said when he was anxious and undergoing the process of detoxification he had palpitations. He currently does not have any palpitations. He is overall doing well. He had an echocardiogram last January which showed normal LV ejection fraction with mild LVH with normal valvular function. He denies any heart failure symptoms. 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 Father No problems noted. Social History Household Members: Family Housing: Apartment Unable to assess alcohol history related to: Unknown Alcohol intake: never Patient Tobacco Use Status: Never used Tobacco e-Cigarette/Vaping Use: Never Used Substance Use Type: Crack/Cocaine Advance Directives Date on File: 12/24/19 service: No Current occupational status: employed and retired Cognitive needs: No Hearing needs: No Vision needs: Yes (reading glasses) Review of Systems Const Denies chills, Denies daytime sleepiness, Denies fatigue, Denies fever(s), Denies frequent falls, Denies poor appetite, Denies snoring, Denies stops breathing during sleep, Denies weakness, Denies weight gain and Denies weight loss Eyes Denies loss of vision ENT Denies dizziness and Denies hearing loss Card Denies chest pain, Denies claudication, Denies leg edema, Denies lightheadedness, Denies palpitations, Denies dyspnea, Denies dyspnea on exertion and Denies orthopnea Resp Denies cough, Denies excessive phlegm production, Denies dyspnea, Denies dyspnea on exertion, Denies snoring and Denies wheezing GI Denies abdominal pain, Denies hematochezia, Denies change in bowel habits, Denies nausea and Denies vomiting Denies dysuria and Denies urinary frequency Musc Denies arthralgias, Denies muscle weakness and Denies numbness Skin/Breast Denies nail changes and Denies rash Neuro Denies Abnormal speech present, Denies dizziness, Denies frequent falls, Denies loss of vision, Denies memory loss, Denies numbness and Denies weakness Psych Denies depression and Denies memory loss Endo Denies fatigue and Denies palpitations Juan Alberto/Lymph Reports easy bruising and Reports other (anemia) Aller/Immun Denies wheezing Physical Exam Vital Signs: Last Vital Signs Pulse 78 10/24/24 09:58 BP 116/72 10/24/24 09:58 BMI result Body Mass Index 32.6 Const General: cooperative, comfortable, no acute distress, well developed, alert, Physically active and well groomed Nutritional Appearance: well nourished Orientation/consciousness: patient oriented x3 Limitations: no limitations HEENT Head: Yes normocephalic and Yes atraumatic Neck Neck: Yes trachea midline, Yes supple and Yes no JVD Resp Effort & Inspection: normal respiratory effort Auscultation: clear to auscultation bilaterally Cardio Jugular venous distension: no JVD Palpation: normal PMI Rate: regular rate Rhythm: regular rhythm Heart sounds: S1 normal heart sound present, S2 normal heart sound present, no click, no gallops, no murmurs and no rubs GI Auscultation: normal bowel sounds Skin General skin exam: no rashes or lesions noted Neuro General: patient oriented x3 and no focal motor deficits Speech: No Abnormal speech present Extrem General: Yes no clubbing, cyanosis or edema Psych Appearance: grossly normal Office Procedures EKG Details: EKG shows normal sinus rhythm with normal EKG [id number], Complete Assessment & Plan Assessment & Plan (1) Hyperlipidemia: Code(s): E78.5 - Hyperlipidemia, unspecified Category: Medical Qualifiers: Hyperlipidemia type: mixed hyperlipidemia Qualified Code(s): E78.2 - Mixed hyperlipidemia Plan: Hyperlipidemia which is significant which has improved on low-dose statin therapy as well as diet modification regular exercise. However I think he would benefit from further screening for atherosclerotic disease for both diagnostic as well as prognostic purposes by a coronary calcium score. Currently has no symptoms at high level of activity and therefore provocative testing is not indicated unless he had significantly high burden of atherosclerosis noted on coronary calcium score. Patient was made aware of the need for coronary calcium score in his agreeable to pursue the same. This will further direct medical therapy and if he has evidence of atherosclerosis will need more further intensification of statin therapy. (2) Palpitations: Code(s): R00.2 - Palpitations Plan: Prior history of palpitation which are now disappeared since improvement in his lifestyle and since improvement in his stress/anxiety levels. Could represent extra systoles and/or inappropriate sinus tachycardia. Both of these have improved and no further workup is indicated at this point time. Continue to participate in his stress mitigation strategies. Avoidance of stimulants was discussed. Will follow up in the clinic if need be. Thank you for allowing me to partake in his care Orders: Orders CT Coronary Calcium Score 1 Week Blake Vu MD E78.2 - Mixed hyperlipidemia, E78.5 - Hyperlipidemia, unspecified Medications: Changed From quetiapine 300 mg PO BEDTIME 90 tabs 1RF To quetiapine 100 mg PO BEDTIME JAZMIN Roberto Coding Level of Care Code New Pt Level 4 (58022) Complex EM visit Add On G2211 Diagnoses Mixed hyperlipidemia E78.2 Hyperlipidemia type: mixed hyperlipidemia Palpitations R00.2 CPT Codes EKG - CPT: 40366-[id number], Complete ([id number])
== END 2024-10-24 10:57 | disposition home or self-care (01) ==
LOC: HO.HCS 09:56
PROVIDERS: PCP Internal Medicine; Visit Provider Internal Medicine Cardiovascular Disease
DX: E78.2 Mixed hyperlipidemia (principal); R00.2 Palpitations
CPT/HCPCS: 93010; 99214

== ENCOUNTER → 2024-10-24 09:55 | Outpatient (BNVA) | payer OTHER, SELFPAY | PROVIDERS: PCP Internal Medicine; Visit Provider Internal Medicine Cardiovascular Disease | DX: E78.2 Mixed hyperlipidemia (principal); R00.2 Palpitations | CPT/HCPCS: 93005; 99212 ==

== ENCOUNTER 2024-12-17 08:58 | Outpatient (AMB) | payer OTHER, SELFPAY ==
[2024-12-17 08:22] VITALS: BP 124/59; PULSE 90; TEMP 36.9; O2SAT 95; BMI 32.7
--- NOTE | 2024-12-17 08:22 | A.OFFPC_ITS ---
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: No Accompanied by: Self / Same As Patient Allergies codeine (CODEINE) Allergy (Severe, Verified 12/17/24 08:22) RASH Medication List - Last Reconciled 12/17/24 by JAZMIN Roberto atorvastatin 10 mg PO DAILY clonazepam 0.5 mg PO PRN clonidine HCl 0.2 mg PO PRN cyclobenzaprine 10 mg PO Q12H PRN ibuprofen 800 mg PO Q8H PRN leg brace (Ankle Brace) airselect, short leg brace (Ankle Brace) large stabilizing pro ankle blk l needle (disp) 18 G (BD Regular Bevel [place]) As directed - draw up testosterone needle (disp) 22 G As directed omeprazole 20 mg PO DAILY quetiapine 100 mg PO BEDTIME sennosides (senna) 17.2 mg (2 x 8.6 mg) PO BEDTIME syringe (disposable) (BD Bulk Syringe Slip Tip) As directed tadalafil 20 mg PO 1XD PRN 30 days testosterone cypionate (Depo-Testosterone) 200 mg IM Q2W 4 weeks tirzepatide (weight loss) (Zepbound) 5 mg (0.5 mL) subcut QWEEK Tobacco use date assessed: 12/17/24 Dental Screening Dental Screen Date: 12/17/24 Did you have a dental visit in the last 12 months?: Yes Did you have a dental problem in the last 6 months where you did not have access to dental care?: No HPI HPI Comments History of Present Illness Details 59 year old male with history of substan ce abuse, HLD, hypogonadism, PreDm, Osteoarthritis, GERD and Obesity presenting for follow-up on weight management. He reports consistent exercise, including daily walking and gym attendance, but has experienced a one-pound weight gain. Despite the weight gain on the scale, he notes that his clothes feel looser and he can tighten his belt by three loops. The patient also reports constipation, describing a sensation of food turning to cement in his stomach shortly after eating, which leads to bloating. To manage this, he has been using enemas. The patient is on atorvastatin for cholesterol management. He is also receiving Sublocade 100 mg as he weans off the medication for opioid use disorder. For health screening, his Cologuard test was to be completed today, and his blood work was noted to be good. A cardiac calcium score test has been ordered by another provider, but the patient has delayed it for three weeks due to cost. Medical History: - Hyperlipidemia, managed with atorvasta tin - Opioid use disorder, on maintenance th erapy with Sublocade 100 mg Medications: - Unspecified injectable weight loss med ication - Atorvastatin for hyperlipidemia - Sublocade 100 mg injection for opioid use disorder Patient was informed and verbally consented to the use of an ambient scribe for clinic note documentation during this visit. [facility] Medical History (Updated 12/17/24 @ 11:47 by JAZMIN Roberto) Chronic back pain Constipation History of opioid abuse Hyperlipidemia Hypogonadism Hypogonadism in male Obesity (BMI 30.0-34.9) Osteoarthritis Pre-diabetes Renal stones Surgical History H/O shoulder surgery History of excision of mass (~12/24/19) Family History (Updated 12/17/24 @ 09:12 by Lyssa Bauman MA) Mother No problems noted. Father No problems noted. Social History Household Members: Family Housing: Apartment Alcohol intake: never Patient Tobacco Use Status: Never used Tobacco e-Cigarette/Vaping Use: Never Used Substance Use Type: Crack/Cocaine Advance Directives Date on File: 12/24/19 service: No Current occupational status: employed and retired Cognitive needs: No Hearing needs: No Vision needs: Yes (reading glasses) Questionnaire PHQ-9 Over the last 2 weeks, how often have you been bothered by any of the following problems? 1. Little interest or pleasure in doing things: not at all 2. Feeling down, depressed, or hopeless: not at all 3. Trouble falling or staying asleep, or sleeping too much: not at all 4. Feeling tired or having little energy: not at all 5. Poor appetite or overeating: not at all 6. Feeling bad about yourself - or that you are a failure or have let yourself or your family down: not at all 7. Trouble concentrating on things, such as reading the newspaper or watching television: not at all 8. Moving or speaking so slowly that other people could have noticed. Or the opposite - being so fidgety or restless that you have been moving around a lot more than usual: not at all 9. Thoughts that you would be better off or of hurting yourself in some way: not at all Total score: 0 Depression Screening Interpretation: Negative Depression Screening Done: Yes Source: Developed by Drs. Fabiano Dc, Trudy Gates, Broderick Barber and colleagues, with an educational jose eduardo from [employer]. Thrive Questionnaire Date Thrive assessed: 12/17/24 I am a: Patient Within the past 12 months, did the food you bought not last and you didn't have the money to get more?: Never true Within the past 12 months, did you worry whether your food would run out before you got money to buy more?: Never true Do you have trouble paying for medicines?: No Do you have trouble getting transportation to medical appointments?: No Do you have trouble paying your heating and electricity bill?: No Do you have trouble taking care of your child, family member or friend?: No Do you have trouble with day-to-day activities such as bathing, preparing meals, shopping, managing finances, etc.?: No Are you currently unemployed and looking for a job?: No Are you interested in more education?: No THRIVE Score: 0 AUDIT C Alcohol Use Questionnaire (AUDIT-C) 1. How often do you have a drink containing alcohol?: Never 3. How often do you have six or more drinks on one occasion?: Never Total Score: 0 AMARJIT-7 AMB Questionnaire AMARJIT-7 Date AMARJIT - 7 assessed: 12/17/24 Feeling nervous, anxious, or on edge: 0 = Not at all Not being able to stop or control worryin = Not at all Worrying too much about different things: 0 = Not at all Trouble relaxin = Not at all Being so restless that it is hard to sit still: 0 = Not at all Becoming easily annoyed or irritable: 0 = Not at all Feeling afraid as if something awful might happen: 0 = Not at all Total AMARJIT-7 score (0-4 normal; 5-9 mild; 10-14 moderate; 15-21 severe): 0 Source: Developed by Drs. Fabiano Dc, Trudy Gates, Broderick Barber and colleagues, with an educational jose eduardo from [employer]. Review of Systems Narrative CONSTITUTIONAL Reports feeling better overall. Reports a one-pound weight gain, but also reports clothes feeling looser. HEAD/NECK Negative RESPIRATORY Negative CARDIOVASCULAR Negative GASTROINTESTINAL Heartburn- Controlled with Omeprazole Reports constipation and bloating. NEUROLOGICAL Negative PSYCHIATRIC Anxiety Insomnia Physical exam (Primary Care) Vital Signs: Last Vital Signs Temp 98.5 F 12/17/24 08:22 Pulse 90 12/17/24 08:22 BP 124/59 L 12/17/24 08:22 Pulse Ox 95 12/17/24 08:22 Oxygen Delivery Method Room Air 12/17/24 08:22 BMI result Body Mass Index 32.7 GENERAL Well developed, obese, in no apparent distress HEENT Head-Normocephalic Neck- Supple, No lymphadenopathy, thyroid WNL RESPIRATORY Normal I:E, Clear to auscultation CARDIOVASCULAR Regular, rate and rhYthm, No murmurs or rubs GASTROINTESTINAL Soft, nontender, normal bowel sounds, no masses NEUROLOGICAL Gait normal PSYCHIATRIC Oriented to person, place and time Mood and affect WNL Appearance WNL Speech WNL Thought processes WNL Tobacco/Smoking Status: Tobacco use Status Tobacco use date assessed 12/17/24 12/17/24 08:24 Patient Tobacco Use Status Never used Tobacco 12/17/24 08:24 e-Cigarette/Vaping Use Never Used 12/17/24 08:24 PHQ-9: PHQ-9 Score PHQ-9: Total score 0 12/17/24 09:15 Depression Screening Interpretation: Negative Thrive Assessment: Date of Thrive Assessment Date Thrive assessed 12/17/24 12/17/24 08:24 Results Reviewed Results Reviewed: - Labs: Recent blood work was good, with normal sugar levels. Coding Level of Care Code Established Pt Tele Est Pt Level 4 (37814) Patient Type Established Diagnoses Pre-diabetes R73.03 Obesity (BMI 30.0-34.9) E66.811 Mixed hyperlipidemia E78.2 Hyperlipidemia type: mixed hyperlipidemia History of opioid abuse F11.11 Constipation K59.00 Time Spent (min) 30 Comment Time spent on lab review, H&P, Patient education and orders. Assessment & Plan Assessment & Plan (1) Pre-diabetes: Comment: A1C was 5.7% Code(s): R73.03 - Prediabetes Category: Medical Plan: Patient working on weight loss. Patient to follow up in 2 months or sooner if needed (2) Obesity (BMI 30.0-34.9): Comment: BMI today was 32.8 Code(s): E66.811 - Obesity, class 1 Category: Medical Plan: The patient's weight has increased by one pound despite regular exercise, though his clothes are fitting looser, suggesting muscle gain. The dose of his injectable weight loss medication will be increased by one click. Advised the patient to measure his waist, hips, and thighs to track progress, as body measurements may show changes even if the scale does not. Injection technique was reviewed, with a recommendation to inject into the sides where there is more subcutaneous fat. Will increase Zepbound to 5mg. Patient to follow up in 2 months or sooner if needed (3) Hyperlipidemia: Code(s): E78.5 - Hyperlipidemia, unspecified Category: Medical Qualifiers: Hyperlipidemia type: mixed hyperlipidemia Qualified Code(s): E78.2 - Mixed hyperlipidemia Plan: The patient questioned the purpose of his atorvastatin. It was explained that the medication is for cholesterol and to reduce his risk of heart disease, and he was advised to continue taking it long-term. (4) History of opioid abuse: Code(s): F11.11 - Opioid abuse, in remission Category: Medical Plan: The patient continues on Sublocade 100 mg and is weaning down. He expressed difficulty keeping track of injection sites for his various medications. (5) Constipation: Code(s): K59.00 - Constipation, unspecified Category: Medical Plan: Will give Senna for constipation. Patient to increase water intake. Patient to follow up as needed if symptoms persist or worsen. Plan I discussed with the patient that his one-pound weight gain is likely due to an increase in muscle mass from his exercise regimen, as muscle weighs more than fat. I recommended he track progress by taking body measurements of his waist, hips, and thighs instead of relying solely on the scale. We will increase his weight loss medication dose. I addressed his constipation as a side effect of the medication slowing gastric motility and will prescribe Senna. I also explained that atorvastatin is a long-term medication to reduce his risk of heart disease and he should continue taking it. We reviewed injection sites to avoid confusion with his Sublocade shot, and I recommended using the fatty tissue on his sides. The patient will follow up in two months. Medications: New sennosides (senna) 17.2 mg (2 x 8.6 mg) PO BEDTIME 180 tabs 1RF constipation tirzepatide (weight loss) (Zepbound) 5 mg (0.5 mL) subcut QWEEK 2 mL 1RF for weight loss Discontinued tirzepatide (weight loss) (Zepbound) for 4 weeks Discontinued Reason: Doctor's Order 2.5 mg (0.5 mL) subcut QWEEK 2 mL 0RF for weight loss Patient Instructions: - Increase the dose of your injectable weight loss medication by one click. - Take two Senna pills every night before bed for constipation. - To track your weight loss, measure your waist, hips, and thighs every week. - Inject your weight loss medication into the side of your stomach area (your love handles ). - Continue taking atorvastatin every day; this is for your cholesterol and to prevent heart problems. - Your Cologuard test will be finished today. - Please schedule a follow-up appointment in two months.
== END 2024-12-17 09:29 | disposition home or self-care (01) ==
LOC: HO.HMCHD 08:59
PROVIDERS: PCP Physician Assistant Medical; Visit Provider Physician Assistant Medical
DX: R73.03 Prediabetes (principal); E66.811 Obesity, class 1; E78.2 Mixed hyperlipidemia; F11.11 Opioid abuse, in remission; K59.00 Constipation, unspecified

== ENCOUNTER → 2024-12-17 08:58 | Outpatient (BNVA) | payer OTHER, SELFPAY | PROVIDERS: PCP Physician Assistant Medical; Visit Provider Physician Assistant Medical | DX: R73.03 Prediabetes (principal); E66.811 Obesity, class 1; Z68.32 Body mass index [BMI] 32.0-32.9, adult; E78.2 Mixed hyperlipidemia; F11.11 Opioid abuse, in remission; K59.00 Constipation, unspecified; Z71.3 Dietary counseling and surveillance | CPT/HCPCS: 99212 ==

== ENCOUNTER 2025-01-24 13:49 | Outpatient (AMB) | payer OTHER, SELFPAY ==
--- NOTE | 2025-01-24 14:08 | A.OFFVIS_ITS ---
Intake Visit Reasons: New prob- Left shoulder Pain Intake Note: Kade is a 60 year old right hand dominant male who presents today for a New Problem Visit with complaints of Left Shoulder Pain. Patient reports that he has been having pain in the left shoulder for about 1 month now. He explains that he has significant pain, numbness and weakness that is limiting his daily activities. He does not recall any injury to the shoulder, but attributes this pain to returning to working out. With ROM he can hear crunching in the shoulder. He has tried muscle relaxers, OTC NSAID & Tylenol with ittle to no relief. Allergies codeine (CODEINE) Allergy (Severe, Verified 12/17/24 08:22) RASH HPI HPI New prob- Left shoulder Pain: Details: Kade is a 60 year old right hand dominant male who presents today for a New Problem Visit with complaints of Left Shoulder Pain. Patient reports that he has been having pain in the left shoulder for about 1 month now. He explains that he has significant pain, numbness and weakness that is limiting his daily activities. He does not recall any injury to the shoulder, but attributes this pain to returning to working out. With ROM he can hear crunching in the shoulder. He has tried muscle relaxers, OTC NSAID & Tylenol with ittle to no relief. HPI Comments Details: Interval History The patient is a 60-year-old male presenting with left shoulder pain and associated tingling and numbness. The patient reports that the pain in his left shoulder has been persistent and severe, occurring 24/7 without relief. He describes the pain as being exacerbated by movement and notes a significant tingling sensation that is particularly bothersome. The patient has been unable to use his left arm effectively while driving due to the severity of the symptoms. He mentions that he recently started going back to [employer], which may have contributed to the irritation of his shoulder. The patient has not experienced any relief from [id number] medications and expresses concern about the persistent numbness and tingling. Results [facility] Medical History (Updated 01/24/25 @ 15:21 by Jaren Harden MD) Constipation Obesity (BMI 30.0-34.9) Chronic back pain Pre-diabetes Hyperlipidemia Hypogonadism in male Renal stones Osteoarthritis Hypogonadism History of opioid abuse Surgical History History of excision of mass (~11/16/20) H/O shoulder surgery Family History (Updated 12/17/24 @ 09:12 by Lyssa Bauman MA) Mother No problems noted. Father No problems noted. Social History Household Members: Family Housing: Apartment Alcohol intake: never Patient Tobacco Use Status: Never used Tobacco e-Cigarette/Vaping Use: Never Used Substance Use Type: Crack/Cocaine Advance Directives Date on File: 12/24/19 service: No Current occupational status: employed and retired Cognitive needs: No Hearing needs: No Vision needs: Yes (reading glasses) Physical Exam Exam Exam: Physical Exam - Musculoskeletal: Examination of the left shoulder reveals pain upon movement and audible crepitus. - Neurologic: Strength testing of the left arm shows good strength, but the patient reports significant tingling during the examination.This improved slightly with overhead positioning of the arm. Negative Lim. No focal weakness appreciable but tingling and numbness subjectively reproducible with shoulder girdle manipulation. Office Procedures Joint Inj/Aspir; Non-Pain Clin Joint Injection/Drain Details: Injected 1 mL of Decadron and 3 mL 1% lidocaine and 3 mL of 0.25% Marcaine. Site was prepped using aseptic technique. Patient tolerated the procedure well. Shoulders, Hips, Knees, Shoulder Injection Large joint [id number]: Left Shoulder Coding Procedure code (CPT) selection complete Assessment & Plan Assessment & Plan (1) Cervical radiculitis: Code(s): M54.12 - Radiculopathy, cervical region Category: Medical (2) Left shoulder pain: Code(s): M25.512 - Pain in left shoulder Category: Medical Plan Plan 1. Left Shoulder Pain With Associated Tingling And Numbness The plan includes administering a corticosteroid injection to the left shoulder to alleviate pain and inflammation. The patient is advised to monitor symptoms and report any changes, particularly if the tingling and numbness persist or worsen. Consideration for an MRI of the cervical spine if symptoms do not improve, to evaluate for possible cervical radiculopathy. 2. Possible Cervical Radiculopathy Contributing To Left Shoulder Symptoms The patient is advised to avoid activities that exacerbate symptoms, such as certain exercises at the gym. Follow-up appointment scheduled to reassess symptoms and evaluate the effectiveness of the injection. Discussion Notes The patient and clinician discussed the nature of the left shoulder pain and the associated tingling and numbness, with an emphasis on the potential involvement of cervical nerves. I explained the purpose of the corticosteroid injection as a means to reduce inflammation and provide pain relief. The patient expressed understanding of the treatment plan and agreed to proceed with the injection. He is in extreme discomfort and I ordered an MRI. I explained to him that once that is done we can get a better sense of what is going. Orders: Orders MR cervical spine wo con Today M54.12 - Radiculopathy, cervical region Coding Level of Care Code Est Pt Level 4 (11189) Diagnoses Cervical radiculitis M54.12 Left shoulder pain M25.512 CPT Codes Shoulders, Hips, Knees, - Shoulder Injection Large joint : Left Shoulder ([id number])
== END 2025-01-24 15:51 | disposition home or self-care (01) ==
LOC: HO.HOS 13:49
PROVIDERS: PCP Physician Assistant Medical; Visit Provider Orthopaedic Surgery
DX: M54.12 Radiculopathy, cervical region (principal); M25.512 Pain in left shoulder
CPT/HCPCS: 20610; 99214

== ENCOUNTER → 2025-01-24 13:49 | Outpatient (BNVA) | payer OTHER, SELFPAY | PROVIDERS: PCP Physician Assistant Medical; Visit Provider Orthopaedic Surgery | DX: M25.512 Pain in left shoulder (principal); M54.12 Radiculopathy, cervical region | CPT/HCPCS: 20610; 99212; J0665; J1100; J2003 ==